=== PATIENT | male | born 1960 | race Caucasian/White ===

== ENCOUNTER 2017-04-18 09:10 | Observation (INO) | payer BC, OTHER ==
[2017-04-18] MEDS ORDERED: ASPIRIN 81 MG PO STA (09:27)
[2017-04-18] MEDS ORDERED: NITROGLYCERIN OINT 1 INCH/GM PACKET TOPICAL STA (09:27)
[2017-04-18] MEDS ORDERED: NITROGLYCERIN SL TABS 0.4 MG TAB SUBLINGUAL STA ×2 (09:27)
--- NOTE | 2017-04-18 09:31 | ED ---
General Adult HPI - General Chief complaint: Chest Pain Stated complaint: CHEST PAIN Time Seen by Provider: 04/18/17 09:15 Source: patient, family, RN notes reviewed Mode of arrival: wheelchair Limitations: no limitations - History of Present Illness Initial comments: This a 56-year-old male presents emergency Department complaining of having high blood pressure last 2 days. Patient also states this morning he started having some left-sided chest pressure that does not feel like his previous heart pain but states it's something that he normally doesn't have. Patient denies any radiation of the pain. Patient states she does have shortness of breath. Patient denies any diaphoresis. Patient denies any nausea today however he does mention that he had some dry heaves on Saturday. Patient denies any recent fever chills or cough. Patient states she's had previous bypass surgery does have high blood pressure does have high cholesterol. Patient denies any smoking currently he states he quit years ago. Patient denies any abdominal pain. Patient denies any vomiting or diarrhea. Patient denies any lightheadedness or dizziness. Patient denies headache patient denies numbness or weakness patient states he also had 2 bloody bowel movements with bright red blood this morning - Related Data Home Medications Medication Instructions Recorded Confirmed Aspirin 81 mg PO DAILY 03/22/14 04/18/17 Lisinopril [Zestril] 10 mg PO DAILY 03/22/14 04/18/17 Metoprolol Tartrate 50 mg PO DAILY 03/22/14 04/18/17 Omeprazole 20 mg PO DAILY 03/22/14 04/18/17 Simvastatin [Zocor] 80 mg PO HS 03/22/14 04/18/17 Cholecalciferol [Vitamin D3] 5,000 unit PO DAILY 03/23/14 04/18/17 Allergies Allergy/AdvReac Type Severity Reaction Status Date / Time hayfever Allergy Unknown Uncoded 04/18/17 09:16 Review of Systems ROS Statement: Those systems with pertinent positive or pertinent negative responses have been documented in the HPI. ROS Other: All systems not noted in ROS Statement are negative. Past Medical History Past Medical History: Coronary Artery Disease (CAD), Chest Pain / Angina, GERD/ Reflux, Hypertension, Myocardial Infarction ([place]) Additional Past Medical History / Comment(s): Pt has hx of high cholesterol. Pt states at 1900 last nite started having difficulty swallowing. Still unable to swallow, even saliva. Has hx of GERD, and would occasionally have brief periods of difficulty swallowing. Last Myocardial Infarction Date:: 2009 History of Any Multi-Drug Resistant Organisms: None Reported Past Surgical History: Appendectomy, Coronary Bypass/CABG, Heart Catheterization With Stent Additional Past Surgical History / Comment(s): CABG February 2010. Pt had [place] 2009. Past Anesthesia/Blood Transfusion Reactions: No Reported Reaction Date of Last Stent Placement:: 2009 Past Psychological History: No Psychological Hx Reported Smoking Status: Former smoker Past Alcohol Use History: Heavy Past Drug Use History: None Reported - Past Family History Father Family Medical History: Cancer, Coronary Artery Disease (CAD), Hyperlipidemia, Hypertension, Myocardial Infarction ([place]) Additional Family Medical History / Comment(s): of Lung cancer at the age of 69. Mother Family Medical History: Cancer, COPD, Coronary Artery Disease (CAD), Hypertension Additional Family Medical History / Comment(s): Mom at age 71. Cancer hx of colon CA. General Exam - General Exam Comments Initial Comments: GENERAL: Patient is well-developed and well-nourished. Patient is nontoxic and well- hydrated and is in mild distress. ENT: Neck is soft and supple. No significant lymphadenopathy is noted. Oropharynx is clear. Moist mucous membranes. Neck has full range of motion without eliciting any pain. EYES: The sclera were anicteric and conjunctiva were pink and moist. Extraocular movements were intact and pupils were equal round and reactive to light. Eyelids were unremarkable. PULMONARY: Unlabored respirations. Good breath sounds bilaterally. No audible rales rhonchi or wheezing was noted. CARDIOVASCULAR: There is a regular rate and rhythm without any murmurs gallops or rubs. ABDOMEN: Soft and nontender with normal bowel sounds. No palpable organomegaly was noted. There is no palpable pulsatile mass. SKIN: Skin is clear with no lesions or rashes and otherwise unremarkable. NEUROLOGIC: Patient is alert and oriented x3. Cranial nerves II through XII are grossly intact. Motor and sensory are also intact. Normal speech, volume and content. Symmetrical smile. MUSCULOSKELETAL: Normal extremities with adequate strength and full range of motion. No lower extremity swelling or edema. No calf tenderness. LYMPHATICS: No significant lymphadenopathy is noted PSYCHIATRIC: Normal psychiatric evaluation. Normal interpersonal interactions appears functionally intact in deals appropriately with others. No signs of depression. No signs of anxiety. Limitations: no limitations Course Vital Signs 04/18/17 04/18/17 04/18/17 09:13 09:38 09:43 Temperature 97.8 F Pulse Rate 72 79 Respiratory 16 18 19 Rate Blood Pressure 192/91 163/99 O2 Sat by Pulse 99 98 Oximetry 04/18/17 10:06 Temperature Pulse Rate 69 Respiratory 18 Rate Blood Pressure 181/100 O2 Sat by Pulse 97 Oximetry Medical Decision Making - Medical Decision Making EKG shows sinus rhythm at 70 bpm PA interval is 224 QRS is 98 QT interval 390 QTC is 429. Patient's EKG shows no ST segment elevation or depression or T wave abnormalities are noted. Patient got 1 nitroglycerin sublingual and it took away his pain. Patient is nontoxic and given heparin today because he has some rectal bleeding. Patient did have nitro paste placed his blood pressure remained mildly elevated psychiatric rooms of hydralazine. And the patient did get aspirin. I spoke with Dr. Cardoza and Dr. Cardoza and agreed to admit the patient admitted the patient I consult cardiology I continued the Nitropaste and aspirin on the floor. - Lab Data Result diagrams: 04/18/17 09:22 04/18/17 09:22 Lab Results 04/18/17 04/18/17 04/18/17 Range/Units 09:22 09:22 09:22 WBC 10.7 H (3.8-10.6) k/uL RBC 5.36 (4.30-5.90) m/uL Hgb 16.9 (13.0-17.5) gm/dL Hct 51.2 (39.0-53.0) % MCV 95.5 (80.0-100.0) fL MCH 31.6 (25.0-35.0) pg MCHC 33.0 (31.0-37.0) g/dL RDW 13.5 (11.5-15.5) % Plt Count 269 (150-450) k/uL Neutrophils % 82 % Lymphocytes % 9 % Monocytes % 7 % Eosinophils % 1 % Basophils % 0 % Neutrophils # 8.7 H (1.3-7.7) k/uL Lymphocytes # 1.0 (1.0-4.8) k/uL Monocytes # 0.7 (0-1.0) k/uL Eosinophils # 0.1 (0-0.7) k/uL Basophils # 0.0 (0-0.2) k/uL PT (9.0-12.0) sec INR (<1.2) APTT (22.0-30.0) sec Sodium 145 (137-145) mmol/L Potassium 3.9 (3.5-5.1) mmol/L Chloride 109 H (98-107) mmol/L Carbon Dioxide 23 (22-30) mmol/L Anion Gap 13 mmol/L BUN 16 (9-20) mg/dL Creatinine 0.97 (0.66-1.25) mg/dL Est GFR (MDRD) Af Amer >60 (>60 ml/min/1.73 sqM) Est GFR (MDRD) Non-Af >60 (>60 ml/min/1.73 sqM) Glucose 100 H (74-99) mg/dL Calcium 9.7 (8.4-10.2) mg/dL Magnesium 2.0 (1.6-2.3) mg/dL Total Bilirubin 0.8 (0.2-1.3) mg/dL AST 26 (17-59) U/L ALT 36 (21-72) U/L Alkaline Phosphatase 100 (38-126) U/L Total Creatine Kinase 91 (55-170) U/L CK-MB (CK-2) 1.9 (0.0-2.4) ng/mL CK-MB (CK-2) Rel Index 2.1 Troponin I <0.012 (0.000-0.034) ng/mL Total Protein 7.6 (6.3-8.2) g/dL Albumin 4.7 (3.5-5.0) g/dL 04/18/17 Range/Units 09:22 WBC (3.8-10.6) k/uL RBC (4.30-5.90) m/uL Hgb (13.0-17.5) gm/dL Hct (39.0-53.0) % MCV (80.0-100.0) fL MCH (25.0-35.0) pg MCHC (31.0-37.0) g/dL RDW (11.5-15.5) % Plt Count (150-450) k/uL Neutrophils % % Lymphocytes % % Monocytes % % Eosinophils % % Basophils % % Neutrophils # (1.3-7.7) k/uL Lymphocytes # (1.0-4.8) k/uL Monocytes # (0-1.0) k/uL Eosinophils # (0-0.7) k/uL Basophils # (0-0.2) k/uL PT 10.3 (9.0-12.0) sec INR 1.0 (<1.2) APTT 23.9 (22.0-30.0) sec Sodium (137-145) mmol/L Potassium (3.5-5.1) mmol/L Chloride (98-107) mmol/L Carbon Dioxide (22-30) mmol/L Anion Gap mmol/L BUN (9-20) mg/dL Creatinine (0.66-1.25) mg/dL Est GFR (MDRD) Af Amer (>60 ml/min/1.73 sqM) Est GFR (MDRD) Non-Af (>60 ml/min/1.73 sqM) Glucose (74-99) mg/dL Calcium (8.4-10.2) mg/dL Magnesium (1.6-2.3) mg/dL Total Bilirubin (0.2-1.3) mg/dL AST (17-59) U/L ALT (21-72) U/L Alkaline Phosphatase (38-126) U/L Total Creatine Kinase (55-170) U/L CK-MB (CK-2) (0.0-2.4) ng/mL CK-MB (CK-2) Rel Index Troponin I (0.000-0.034) ng/mL Total Protein (6.3-8.2) g/dL Albumin (3.5-5.0) g/dL Critical Care Time Critical Care Time: Yes Total Critical Care Time: 35 Disposition Clinical Impression: Unstable angina pectoris, Rectal bleeding Disposition: ADMITTED IP TO THIS HOSP Referrals: Ramsey Wells MD [Primary Care Provider] - 1-2 days Time of Disposition: 11:04
[2017-04-18] MEDS: NITROGLYCERIN SL TABS 0.4 MG TAB SUBLINGUAL STA ×2 (09:41→09:42)
[2017-04-18 09:47] LABS: Basophils % (A) 0 %; CH 31.7; CHCM 33.4; Eosinophils # (A) 0.1 k/uL (0-0.7); Eosinophils % (A) 1 %; HCT 51.2 % (39.0-53.0); HDW 2.35; HGB 16.9 gm/dL (13.0-17.5); Luc # (Auto) 0.15; Luc % (Auto) 1; Lymphocytes % (A) 9 %; MCH 31.6 pg (25.0-35.0); MCV 95.5 fL (80.0-100.0); Mean Platelet Volume 6.9; Monocytes # (A) 0.7 k/uL (0-1.0); Monocytes % (A) 7 %; Neutrophils # (A) 8.7 k/uL (1.3-7.7); Neutrophils % (A) 82 %; RBC 5.36 m/uL (4.30-5.90); RDW 13.5 % (11.5-15.5); WBC 10.7 k/uL (3.8-10.6); WBC (Perox) 10.15
[2017-04-18 09:49] LABS: Partial Thromboplastin Time 23.9 sec (22.0-30.0); Prothrombin Time 10.3 sec (9.0-12.0)
[2017-04-18 09:52] LABS: ALT 36 U/L (21-72); AST 26 U/L (17-59); Alkaline Phosphatase 100 U/L (38-126); Anion Gap 13 mmol/L; Blood Urea Nitrogen 16 mg/dL (9-20); Calcium 9.7 mg/dL (8.4-10.2); Carbon Dioxide 23 mmol/L (22-30); Chloride 109 mmol/L (98-107); Glucose 100 mg/dL (74-99); Non-African American GFR(MDRD) >60 (>60 ml/min/1.73 sqM); Potassium 3.9 mmol/L (3.5-5.1); Sodium 145 mmol/L (137-145); Total Bilirubin 0.8 mg/dL (0.2-1.3); Total Protein 7.6 g/dL (6.3-8.2)
[2017-04-18 09:59] LABS: Creatine Kinase 91 U/L (55-170)
[2017-04-18 10:12] LABS: Creatine Kinase MB 1.9 ng/mL (0.0-2.4); Troponin I <0.012 ng/mL (0.000-0.034)
--- NOTE | 2017-04-18 10:12 | XR ---
EXAMINATION TYPE: XR chest 2V DATE OF EXAM: 04/18/2017 COMPARISON: Prior chest x-ray 03/27/2013 HISTORY: Chest pain TECHNIQUE: Frontal and lateral views of the chest are obtained. FINDINGS: There is no focal air space opacity, pleural effusion, or pneumothorax seen. The cardiac silhouette size is within normal limits. There are overlying cardiac leads. Patient is post median st ernotomy. The osseous structures are intact. IMPRESSION: No acute cardiopulmonary process.
[2017-04-18] MEDS ORDERED: NITROGLYCERIN SL TABS 0.4 MG TAB SUBLINGUAL PRN (11:04)
[2017-04-18] MEDS ORDERED: hydrALAZINE HCL 20 MG/ML 1 ML VIAL IVP STA (11:05)
--- NOTE | 2017-04-18 13:41 | CONS ---
CONSULTATION Mr. Fox is a 56-year-old male with known history of coronary artery disease, status post coronary artery bypass grafting in 2010 following a myocardial infarction, underwent bypass at that time. Has not been followed by Cardiology since that time. He has a strong family history of coronary disease, history of hypertension, hyperlipidemia, who presented to the emergency room with symptoms of left-sided chest discomfort as well as bright red blood per rectum. He had the discomfort in the left side. He feels that it was muscular, not associated with any other symptoms and according to him, different from the presenting symptoms in 2009. He is quite active physically. He has some dyspnea on exertion that has been stable, but no exertional chest pain. He denies any dizziness or palpitation. No syncope. No PND, orthopnea, or peripheral edema. He had bright red blood per rectum and with his stool on more than one occasion today. He feels slightly nauseated. His coronary risk factors are remarkable for the history of hypertension, hyperlipidemia, strong family history of coronary artery disease and he has stopped smoking in 2008. MEDICATION: His medications at home included aspirin 81 mg daily, vitamin D, Zestril 10 mg daily, metoprolol tartrate 50 mg daily, omeprazole 20 mg daily, and simvastatin 80 mg daily. REVIEW OF SYSTEMS: RESPIRATORY SYSTEM: He has no recent wheezing. No cough. He has some dyspnea on exertion. GI SYSTEM: He had red blood per rectum. He has no prior history of ulcer. No abdominal pain. SYSTEM: No dysuria or hematuria. NERVOUS SYSTEM: No history of seizure. PHYSICAL EXAMINATION: A 56-year-old male, alert, oriented, in no apparent distress. Blood pressure running 159/80 with the heart rate in the 60s. HEAD: Normocephalic. EYES: Sclerae anicteric. NECK: Good upstroke. No bruit. No jugular distention. LUNGS: Clear to auscultation. HEART: Regular rate and rhythm. S1, S2. No S3. No rub. No chest wall tenderness. ABDOMEN: Soft, nontender. Positive bowel sounds. No organomegaly. EXTREMITIES: No edema. Intact distal pulses. LAB DATA: Lab data revealed BUN and creatinine of 16.9. Potassium 3.9. Troponin less than 0.012. Hemoglobin of 16.9. White blood cell of 10.7. EKG revealed a sinus mechanism with normal axis, first-degree AV block, poor R-wave progression; no acute changes. Chest x-ray revealed no evidence of acute infiltrate. IMPRESSION: 1. Left-sided chest discomfort of unclear etiology. Rule out angina pectoris. His symptoms are different from his prior presenting symptoms in 2009. He has not had any enzymatic changes so far. 2. Status post coronary artery bypass grafting. 3. Hypertension, elevated. According to the patient his blood pressure has been elevated for the last couple days. 4. History of hyperlipidemia. 5. Bright red blood per rectum, etiology unclear. RECOMMENDATION: From the cardiac standpoint, I will start him back on a beta kia and an TYRA inhibitor. I will add hydrochlorothiazide to his regimen. Will continue on the statin. An echocardiogram with Doppler will be obtained her. The patient is not a candidate for anticoagulation because of his bleeding. Depending on results of testing, further recommendation will be made. I will try to obtain the prior cardiac workup and depending on his progress and results of his lab data, further recommendation will be made. Thank you for this consult. We will follow with you. MMODL / IJN: [id number] /
[2017-04-18] MEDS: NITROGLYCERIN OINT 1 INCH/GM PACKET TOPICAL SCH ×3 (14:17→22:52)
[2017-04-18] MEDS ORDERED: ACETAMINOPHEN TAB 325 MG TAB PO PRN (14:51)
[2017-04-18] MEDS: HYDROCHLOROTHIAZIDE 25 MG TAB PO SCH (15:16)
[2017-04-18] MEDS: ATORVASTATIN 40 MG TAB PO SCH (15:16)
[2017-04-18] MEDS: METOPROLOL TARTRATE 25 MG TAB PO SCH (15:24)
[2017-04-18] MEDS: LISINOPRIL 5 MG TAB PO SCH (15:24)
[2017-04-18 15:59] LABS: Basophils % (A) 0 %; CH 31.7; CHCM 33.1; Eosinophils # (A) 0.1 k/uL (0-0.7); Eosinophils % (A) 1 %; HCT 44.6 % (39.0-53.0); HDW 2.27; HGB 15.1 gm/dL (13.0-17.5); Luc # (Auto) 0.19; Luc % (Auto) 2; Lymphocytes # (A) 0.9 k/uL (1.0-4.8); Lymphocytes % (A) 10 %; MCH 32.5 pg (25.0-35.0); MCHC 33.8 g/dL (31.0-37.0); MCV 96.2 fL (80.0-100.0); Mean Platelet Volume 7.2; Monocytes # (A) 0.6 k/uL (0-1.0); Monocytes % (A) 7 %; Neutrophils % (A) 79 %; RBC 4.63 m/uL (4.30-5.90); RDW 13.4 % (11.5-15.5); WBC 8.9 k/uL (3.8-10.6); WBC (Perox) 9.07
[2017-04-18 16:17] LABS: Creatine Kinase 67 U/L (55-170)
[2017-04-18 16:28] LABS: Creatine Kinase MB 1.2 ng/mL (0.0-2.4); Troponin I <0.012 ng/mL (0.000-0.034)
[2017-04-18 17:40] LABS: Basophils % (A) 0 %; CH 31.6; CHCM 32.9; Eosinophils # (A) 0.2 k/uL (0-0.7); Eosinophils % (A) 2 %; HCT 46.5 % (39.0-53.0); HDW 2.28; HGB 15.2 gm/dL (13.0-17.5); Luc # (Auto) 0.23; Luc % (Auto) 3; Lymphocytes # (A) 1.2 k/uL (1.0-4.8); Lymphocytes % (A) 13 %; MCH 31.6 pg (25.0-35.0); MCHC 32.8 g/dL (31.0-37.0); MCV 96.5 fL (80.0-100.0); Mean Platelet Volume 7.1; Monocytes # (A) 0.6 k/uL (0-1.0); Monocytes % (A) 7 %; Neutrophils % (A) 76 %; RBC 4.82 m/uL (4.30-5.90); RDW 13.4 % (11.5-15.5); WBC 9.3 k/uL (3.8-10.6); WBC (Perox) 9.65
[2017-04-18] MEDS ORDERED: DIPHENOX-ATROP 2.5-0.025 MG 1 EACH TAB PO PRN (18:03)
--- NOTE | 2017-04-18 18:59 | HP ---
HISTORY AND PHYSICAL CHIEF COMPLAINT: 1. Chest pain. 2. Hypertension. HISTORY OF PRESENT ILLNESS: This is another admission for this 56-year-old, white male, who has a history of coronary artery disease. He had an NC in 2009. He subsequently underwent CABG. Since then he has done fairly well but he has a tendency to drink a great deal of alcohol and is lax on taking his medicines and keeping followup. He has not been seen for almost a year. He apparently was identified as having a blood pressure of 218/118 and came to the emergency room. He was experiencing some chest pain and pressure as well. His enzymes are normal. He also has a history of hyperlipidemia. REVIEW OF SYSTEMS: He has had a slight headache. He has had no neurologic deficits or changes in vision, hearing. He has had no cough, chills, palpitations, syncope, orthopnea, PND, abdominal pain, vomiting, diarrhea, melena, hematochezia, jaundice, hematuria, frequency, urgency, calcitriol disease, diabetes cancer. Past medical history, family, personal and social histories are all otherwise unremarkable. He is on simvastatin 80 mg at night, metoprolol 50 mg once a day, lisinopril 10 mg once a day, Prilosec 20 mg once a day, 81 mg aspirin, and ranitidine 150 mg b.i.d. He used to smoke, but he stopped. PHYSICAL EXAMINATION: Blood pressure is 218/118 with a pulse of 88, respirations of 38 and he is afebrile. In general, appeared to be flushed, but in no acute distress. Skin is dry and lymph nodes not enlarged. Head, ears, eyes, nose, mouth and throat were normal. Neck veins not distended. Carotids are normal. Chest is clear. Cardiac exam is normal. Abdomen is soft and nontender. Extremities are normal. Neurologically he is intact. IMPRESSION: 1. Chest pain. 2. History of coronary artery disease with bypass. 3. Uncontrolled hypertension. 4. Alcohol abuse. PLAN: 1. Bed rest. 2. IV fluids. 3. Serial EKGs and enzymes. 4. Cardiology consult. 5. Control hypertension. MMODL / IJN: [id number] /
[2017-04-18] MEDS ORDERED: ATORVASTATIN 40 MG TAB PO SCH (21:00)
[2017-04-18 22:47] LABS: Basophils % (A) 0 %; CH 31.7; CHCM 33.3; Eosinophils # (A) 0.3 k/uL (0-0.7); Eosinophils % (A) 3 %; HCT 46.1 % (39.0-53.0); HDW 2.26; HGB 15.2 gm/dL (13.0-17.5); Luc # (Auto) 0.21; Luc % (Auto) 2; Lymphocytes # (A) 1.3 k/uL (1.0-4.8); Lymphocytes % (A) 15 %; MCH 31.5 pg (25.0-35.0); MCHC 32.9 g/dL (31.0-37.0); MCV 95.6 fL (80.0-100.0); Monocytes # (A) 0.7 k/uL (0-1.0); Monocytes % (A) 8 %; Neutrophils # (A) 6.7 k/uL (1.3-7.7); Neutrophils % (A) 72 %; RBC 4.83 m/uL (4.30-5.90); RDW 13.4 % (11.5-15.5); WBC 9.2 k/uL (3.8-10.6)
[2017-04-18 23:00] LABS: Creatine Kinase 60 U/L (55-170)
[2017-04-18 23:14] LABS: Creatine Kinase MB 1.1 ng/mL (0.0-2.4); Troponin I <0.012 ng/mL (0.000-0.034)
[2017-04-19] MEDS: NITROGLYCERIN OINT 1 INCH/GM PACKET TOPICAL SCH ×2 (02:33→11:38)
[2017-04-19 06:51] LABS: CH 31.7; CHCM 33.3; HCT 49.5 % (39.0-53.0); HDW 2.25; HGB 16.1 gm/dL (13.0-17.5); MCH 31.1 pg (25.0-35.0); MCHC 32.5 g/dL (31.0-37.0); MCV 95.6 fL (80.0-100.0); Mean Platelet Volume 6.8; RBC 5.18 m/uL (4.30-5.90); RDW 13.4 % (11.5-15.5)
[2017-04-19 07:00] LABS: Anion Gap 11 mmol/L; Blood Urea Nitrogen 13 mg/dL (9-20); Calcium 9.4 mg/dL (8.4-10.2); Carbon Dioxide 24 mmol/L (22-30); Chloride 104 mmol/L (98-107); Cholesterol 198 mg/dL (<200); Glucose 103 mg/dL (74-99); HDL Cholesterol 71 mg/dL (40-60); Non-African American GFR(MDRD) >60 (>60 ml/min/1.73 sqM); Potassium 3.9 mmol/L (3.5-5.1); Sodium 139 mmol/L (137-145)
[2017-04-19] MEDS: METOPROLOL TARTRATE 25 MG TAB PO SCH (08:35)
[2017-04-19] MEDS: LISINOPRIL 5 MG TAB PO SCH (08:35)
[2017-04-19] MEDS: PANTOPRAZOLE 40 MG TABLET PO SCH (08:35)
[2017-04-19] MEDS: ATORVASTATIN 40 MG TAB PO SCH (08:35)
[2017-04-19] MEDS: ASPIRIN 81 MG PO SCH (08:36)
[2017-04-19] MEDS: HYDROCHLOROTHIAZIDE 25 MG TAB PO SCH (08:36)
[2017-04-19] MEDS ORDERED: ASPIRIN 81 MG PO SCH (09:00)
[2017-04-19] MEDS ORDERED: LISINOPRIL 10 MG TAB PO SCH (09:00)
[2017-04-19] MEDS ORDERED: ASPIRIN 325 MG TAB PO SCH (09:00)
[2017-04-19] MEDS ORDERED: METOPROLOL TARTRATE 50 MG TAB PO SCH (09:00)
--- NOTE | 2017-04-19 09:29 | ECHOF ---
Referral Reason:cad MEASUREMENTS -------- HEIGHT: 165.1 cm WEIGHT: 88.0 kg BP: RVIDd: 3.8 cm (< 3.3) IVSd: 1.1 cm (0.6 - 1.1) LVIDd: 4.7 cm (3.9 - 5.3) LVPWd: 1.3 cm (0.6 - 1.1) IVSs: 1.3 cm LVIDs: 3.8 cm LVPWs: 1.2 cm LAESV Index (A-L): 20.78 ml/m Ao Diam: 3.4 cm (2.0 - 3.7) AV Cusp: 2.0 cm (1.5 - 2.6) LA Diam: 3.1 cm (2.7 - 3.8) MV EXCURSION: 19.783 mm (> 18.000) MV EF SLOPE: 81 mm/s (70 - 150) EPSS: 0.5 cm MV E Erwin: 0.96 m/s MV DecT: 200 ms MV A Erwin: 1.03 m/s MV E/A Ratio: 0.93 RAP: 5.00 mmHg RVSP: 11.86 mmHg FINDINGS -------- Sinus rhythm. This was a technically difficult study with suboptimal views. The left ventricular size is normal. There is mild concentric left ventricular hypertrophy. Overall left ventricular systolic function is mildly impaired with, an EF between 45 - 50 %. Basal inferolateral hypokinesis. The right ventricle is mild to moderately enlarged. The left atrium is normal in size. The right atrium is normal in size. 1.5mg of Definity was utilized for enhancement of images The aortic valve is trileaflet, and appears structurally normal. No aortic stenosis or regurgitation. Mild mitral regurgitation is present. Mild tricuspid regurgitation present. The right ventricular systolic pressure, as measured by Doppler, is 11.86mmHg. Pulmonic valve appears structurally normal. The aortic root size is normal. The pericardium is normal. CONCLUSIONS -------- 1. Sinus rhythm. 2. 1.5mg of Definity was utilized for enhancement of images 3. The aortic valve is trileaflet, and appears structurally normal. No aortic stenosis or regurgitation. 4. Mild mitral regurgitation is present. 5. Mild tricuspid regurgitation present. 6. The right ventricular systolic pressure, as measured by Doppler, is 11.86mmHg. 7. Pulmonic valve appears structurally normal. 8. The aortic root size is normal. 9. The pericardium is normal. 10. This was a technically difficult study with suboptimal views. 11. The left ventricular size is normal. 12. There is mild concentric left ventricular hypertrophy. 13. Overall left ventricular systolic function is mildly impaired with, an EF between 45 - 50 %. 14. Basal inferolateral hypokinesis. 15. The right ventricle is mild to moderately enlarged. 16. The left atrium is normal in size. 17. The right atrium is normal in size. RO[employer] MILL OPERATOR: Malou Simon RDCS
--- NOTE | 2017-04-19 11:53 | P.CONS ---
History of Present Illness - Reason for Consult Consult date: 04/19/17 GI bleed Requesting physician: Ramsey Wells - History of Present Illness 56-year-old male with a history of CAD, CABG, TN, hypertension presents with left-sided chest discomfort and rectal bleeding. Admission hemoglobin 16.9 presently 16.1. Platelet 241. BUN 13. Creatinine 0.9. INR 1.0. Patient states a few days ago he developed an episode of nonbloody diarrhea and past bright red blood per rectum without stool cleared up after few wipes of tissue. History of hemorrhoids. He intermittently has this type of bleeding couple times a year nothing severe. Denies gross hematochezia hematemesis or melena. Lower abdominal cramping prior to admission. Last colonoscopy to his memory was about 5 years ago unsure of results. No fever chills weight loss. No history of personal a familial colon cancer. He does drink beer on a daily basis for several years. Takes one tablet of Aleve daily for arthritic pain along with baby aspirin but no additional NSAIDs aspirin products or antiplatelet agents. Review of Systems Constitutional: Denies fever, chills, sweats, weight gain, or loss. HEENT: Negative for migraines, blurred vision or loss, earaches, drainage, tinnitus, oral mucosal lesions, dysphagia, or odynophagia. Cardiac: CAD. TN. CABG. Negative for chest pain, arrhythmias, or palpitation. Respiratory: Negative for shortness of breath, hemoptysis, cough, or sputum production. Gastrointestinal: See HPI for pertinent findings. Genitourinary: Negative for hematuria, urgency, frequency, polyuria, dysuria, or penile discharge. Musculoskeletal: Negative for muscle aches, swelling, arthritis, and arthralgias. Neurologic: Negative for stroke or TIA. Endocrine: Negative for thyroid problems. Skin: Negative for rash or itching. Psychiatric: Negative history for depression and anxiety All systems: negative (See HPI) Past Medical History Past Medical History: Coronary Artery Disease (CAD), Chest Pain / Angina, COPD, GERD/Reflux, Hyperlipidemia, Hypertension, Myocardial Infarction (TN) Additional Past Medical History / Comment(s): Gerd with past intermittent problems with swallowing, past R wrist and L ankle fractures. Last Myocardial Infarction Date:: 2009 History of Any Multi-Drug Resistant Organisms: None Reported Past Surgical History: Appendectomy, Coronary Bypass/CABG, Heart Catheterization With Stent Additional Past Surgical History / Comment(s): 5 vessel CABG February 2010, EGD/ colonoscopy Past Anesthesia/Blood Transfusion Reactions: No Reported Reaction Date of Last Stent Placement:: 2009 Past Psychological History: No Psychological Hx Reported Additional Psychological History / Comment(s): Pt lives alone. He is independent. Smoking Status: Former smoker Past Alcohol Use History: Heavy Additional Past Alcohol Use History / Comment(s): Pt states he started smoking at age 11. He has also chewed tobacco at times and sometimes did both. He quit cigarettes and chew in 2008. Pt states he drinks either 6-8 beers a day or 4-5 drinks with vodka a day. Past Drug Use History: None Reported - Past Family History Father Family Medical History: Cancer, Coronary Artery Disease (CAD), Hyperlipidemia, Hypertension, Myocardial Infarction (TN) Additional Family Medical History / Comment(s): of Lung cancer at the age of 69. Mother Family Medical History: Cancer, COPD, Coronary Artery Disease (CAD), Hypertension Additional Family Medical History / Comment(s): Mom at age 71. Cancer hx of colon CA. Medications and Allergies Home Medications Medication Instructions Recorded Confirmed Type Aspirin 81 mg PO DAILY 03/22/14 04/18/17 History Lisinopril [Zestril] 10 mg PO DAILY 03/22/14 04/18/17 History Metoprolol Tartrate 50 mg PO DAILY 03/22/14 04/18/17 History Omeprazole 20 mg PO DAILY 03/22/14 04/18/17 History Simvastatin [Zocor] 80 mg PO HS 03/22/14 04/18/17 History Cholecalciferol [Vitamin D3] 5,000 unit PO DAILY 03/23/14 04/18/17 History Peg 3350-Na Sulf,Bicarb,Cl/KCl 4,000 ml PO DIRECTED #1 bottle 04/19/17 Rx [Golytely Lavage] Allergies Allergy/AdvReac Type Severity Reaction Status Date / Time hayfever Allergy Unknown Uncoded 04/18/17 09:16 Physical Exam Vitals: Vital Signs Temp Pulse Pulse Resp BP BP Pulse Ox 04/19/17 04:00 98.5 F 85 16 143/96 96 04/19/17 00:00 98.1 F 77 16 163/111 96 04/18/17 20:00 97.4 F L 74 16 147/91 97 04/18/17 15:00 97.5 F L 76 16 131/84 96 04/18/17 13:16 16 04/18/17 12:34 97 F L 69 16 159/86 97 04/18/17 12:06 98.0 F 81 18 162/86 97 04/18/17 12:05 116 H 18 162/86 94 L 04/18/17 11:31 98.1 F 67 19 180/84 98 04/18/17 11:00 65 20 176/92 99 04/18/17 10:06 69 18 181/100 97 04/18/17 09:43 19 04/18/17 09:38 79 18 163/99 98 04/18/17 09:13 97.8 F 72 16 192/91 99 Intake and Output 04/18/17 04/19/17 04/19/17 22:59 06:59 14:59 Intake Total 240 Balance 240 Intake: Oral 240 Other: Voiding Method Toilet Toilet # Voids 2 1 # Bowel Movements 1 Weight 85 kg General appearance: The patient is alert, oriented, in no acute distress. HET: Head is normocephalic and atraumatic. Pupils are equal and reactive. Oropharynx is clear without lesions. Neck: Supple without lymphadenopathy. Trachea midline. Heart: S1 S2. Regular rate and rhythm. Lungs: No crackles or wheezes are heard. Abdomen: Soft, nontender, nondistended with bowel sounds. No peritoneal signs. No palpable organomegaly or masses. Extremities: Normal skin color and turgor. No cyanosis, rash, ulceration, clubbing, or edema. Radial and pedal pulses are 2/4 bilaterally. Neurological: No focal deficits. Strength and sensation are grossly intact. Rectal: No external hemorrhoids. Internal exam no palpable masses possible small internal hemorrhoid felt near the 6 o'clock position. Additionally there is a small superficial tear in the 6 o'clock position, no obvious fissure felt. No blood on finger. Results CBC & Chem 7: 04/19/17 05:59 04/20/17 05:51 Labs: Abnormal Lab Results - Last 24 Hours (Table) 04/18/17 04/18/17 04/18/17 Range/Units 09:22 09:22 15:15 WBC 10.7 H (3.8-10.6) k/uL Neutrophils # 8.7 H (1.3-7.7) k/uL Lymphocytes # 0.9 L (1.0-4.8) k/uL Chloride 109 H (98-107) mmol/L Glucose 100 H (74-99) mg/dL LDL Cholesterol, Calc (0-99) mg/dL HDL Cholesterol (40-60) mg/dL 04/19/17 Range/Units 05:59 WBC (3.8-10.6) k/uL Neutrophils # (1.3-7.7) k/uL Lymphocytes # (1.0-4.8) k/uL Chloride (98-107) mmol/L Glucose 103 H (74-99) mg/dL LDL Cholesterol, Calc 103 H (0-99) mg/dL HDL Cholesterol 71 H (40-60) mg/dL Assessment and Plan (1) Rectal bleeding Narrative/Plan: Suspect perirectal in nature with a history of hemorrhoids possible early rectal fissure prior exam. Colonic source cannot be entirely excluded. Status: Acute (2) Chest pain Status: Acute (3) Hypertension Status: Acute Plan: 1. Dr. Wells was at bedside this morning during exam and plan of care was discussed. Dr. Wells requested outpatient colonoscopy. We'll proceed with outpatient colonoscopy in 1-2 weeks to allow hypertension to be more controlled. Hemoglobin is stable in the 16 range. Continue with stool softeners daily and avoid constipation. Local hemorrhoidal care was discussed. Patient is agreeable with this plan of care. Tentative colonoscopy scheduled April 29 at [facility] with Dr. Ndiaye. Thank you for this kind referral and the opportunity to participate in the care of your patient. This consultation was discussed with Dr. Ndiaye. The impression and plan of care have been directed as dictated.
--- NOTE | 2017-04-19 12:54 | P.PN ---
Subjective Progress Note Date: 04/19/17 Principal diagnosis: chest pain, rectal bleeding This is a pleasant 56-year-old gentleman with history of coronary artery disease , status post coronary artery bypass grafting in 2009 following a myocardial infarction. He has not followed with a artist model since that time. He also has a history of hypertension, hyperlipidemia and strong family history of coronary artery disease. Presented to emergency department with left-sided chest discomfort as well as bright red blood per rectum. Discomfort was on the left side. He felt it was muscular, not associated with any other symptoms and according to him different from the presenting symptoms in 2009. He is quite active physically. He has some dyspnea on exertion that has been stable but no exertional chest discomfort. He has no complaint of dizziness, lightheadedness , palpitations, syncope, PND, orthopnea or peripheral edema. He had episodes of bright red blood per rectum in with the stool on more than one occasion. He feels slightly nauseous and has some lower abdominal cramping. He is being followed by GI who did an internal exam and found possible hemorrhoid. He will be scheduled for colonoscopy in the next one to 2 weeks. He has received lisinopril 5 mg today, metoprolol tartrate 25 mg and hydrochlorothiazide 25 mg by mouth. Primary physician has increased lisinopril 10 mg daily and metoprolol tartrate 50 mg by mouth twice a day. Objective - Vital Signs Vital signs: Vital Signs Temp 97.0 F L 04/19/17 11:30 Pulse 79 04/19/17 11:31 Resp 16 04/19/17 11:31 BP 134/84 04/19/17 11:30 Pulse Ox 95 04/19/17 11:30 Intake & Output 04/18/17 04/19/17 04/19/17 18:59 06:59 18:59 Intake Total 480 240 Output Total 300 Balance 480 -60 Weight 87.997 kg 85 kg Intake: Oral 480 240 Output: Urine 300 Other: Voiding Method Toilet Toilet Toilet # Voids 1 1 # Bowel Movements 1 - Exam PHYSICAL EXAMINATION: HEENT: Head is atraumatic, normocephalic. Pupils equal, round. Neck is supple. There is no elevated jugular venous pressure. HEART EXAMINATION: Heart sounds regular, S1 and S2 normal. No murmur or gallop heard. CHEST EXAMINATION: Lungs are clear to auscultation and precussion. No chest wall tenderness is noted on palpation or with deep breathing. ABDOMEN: Soft, nontender. Bowel sounds are heard. No organomegaly noted. EXTREMITIES: 2+ peripheral pulses with no evidence of peripheral edema and no calf tenderness noted. NEUROLOGIC patient is awake, alert and oriented x3. . - Labs CBC & Chem 7: 04/19/17 05:59 04/19/17 05:59 Labs: Abnormal Lab Results - Last 24 Hours (Table) 04/18/17 04/19/17 Range/Units 15:15 05:59 Lymphocytes # 0.9 L (1.0-4.8) k/uL Glucose 103 H (74-99) mg/dL LDL Cholesterol, Calc 103 H (0-99) mg/dL HDL Cholesterol 71 H (40-60) mg/dL Assessment and Plan Plan: Assessment and plan #1 left-sided chest discomfort of unclear etiology, troponins less than 0.0123 #2 status post coronary artery bypass grafting in 2009 #3 hypertension #4 hyperlipidemia #5 red blood per rectum, possible hemorrhoids From cardiology's perspective, we will continue current medications. Blood pressure is better controlled. He is currently not a candidate for anticoagulation because of his bleeding. We'll continue to follow the patient and provide further recommendations accordingly. DIETARY TECH note has been reviewed, I agree with a documented findings and plan of care. Patient was seen and examined.
--- NOTE | 2017-04-19 18:12 | PN ---
PROGRESS NOTE DATE OF SERVICE: 04/19/2017 CHIEF COMPLAINT: Malignant hypertension and rectal bleeding. HISTORY OF PRESENT ILLNESS: This gentleman is doing fairly well. He has not seen any further bleeding. He has had no chest pain. His enzymes appear normal. Blood pressure is coming down, but is still slightly elevated. PHYSICAL EXAMINATION: Color is good. Chest is clear. Cardiac exam is normal. Abdomen is soft and non- tender. Extremities are normal. IMPRESSION: 1. Malignant hypertension. 2. Bright red rectal bleeding. 3. Alcoholism. PLAN: 1. Increase beta kia and TYRA inhibitor. 2. He is being evaluated by GI. He probably should have a workup postponed until his blood pressure is under good control. MMODL / IJN: [id number] /
[2017-04-19] MEDS ORDERED: LORazepam 2 MG/ML INJ IV PRN ×3 (18:26)
[2017-04-19] MEDS ORDERED: THIAMINE 100 MG/ML 2 ML VIAL IM STA (18:26)
[2017-04-19] MEDS: SENNOSIDES-DOCUSATE SODIUM 1 EACH TAB PO SCH (20:14)
[2017-04-19] MEDS: METOPROLOL TARTRATE 50 MG TAB PO SCH (20:14)
[2017-04-19] MEDS ORDERED: METOPROLOL SUCCINATE (ER) 50 MG TAB.ER.24H PO SCH (21:00)
[2017-04-20 06:51] LABS: Anion Gap 10 mmol/L; Blood Urea Nitrogen 15 mg/dL (9-20); Calcium 9.8 mg/dL (8.4-10.2); Carbon Dioxide 28 mmol/L (22-30); Chloride 100 mmol/L (98-107); Glucose 96 mg/dL (74-99); Non-African American GFR(MDRD) >60 (>60 ml/min/1.73 sqM); Potassium 4.2 mmol/L (3.5-5.1); Sodium 138 mmol/L (137-145)
[2017-04-20 07:48] VITALS: TEMP 98
[2017-04-20] MEDS: PANTOPRAZOLE 40 MG TABLET PO SCH (07:49)
[2017-04-20] MEDS: ASPIRIN 81 MG PO SCH (07:49)
[2017-04-20] MEDS: HYDROCHLOROTHIAZIDE 25 MG TAB PO SCH (07:49)
[2017-04-20] MEDS: SENNOSIDES-DOCUSATE SODIUM 1 EACH TAB PO SCH (07:49)
[2017-04-20] MEDS: ATORVASTATIN 40 MG TAB PO SCH (07:49)
[2017-04-20] MEDS: METOPROLOL TARTRATE 50 MG TAB PO SCH (07:49)
[2017-04-20] MEDS ORDERED: LISINOPRIL 20 MG TAB PO SCH (09:00)
[2017-04-20] MEDS ORDERED: LISINOPRIL 10 MG TAB PO SCH (09:00)
--- NOTE | 2017-04-20 09:55 | PN ---
PROGRESS NOTE Mr. Fox is a 56-year-old male with a history of coronary artery disease status post coronary artery bypass grafting, who presented with GI bleeding, most likely related to internal hemorrhoids. He still has some bleeding, although not as severe. He has no chest pain. His breathing has been stable. He denies any dizziness or palpitation. He denies any nausea. He continues to be on aspirin 81 mg daily, Lipitor 40 mg daily, hydrochlorothiazide 25 mg daily, metoprolol tartrate 50 mg twice a day. PHYSICAL EXAMINATION: Blood pressure 134/80 with a heart in the 80s. LUNGS: Clear. Heart regular rate and rhythm S1, S2. No S3. No rub. ABDOMEN: Soft, nontender. EXTREMITIES: No edema. LAB DATA: BUN and creatinine 15 and 1.1. Potassium 4.2. IMPRESSION: 1. Symptoms of chest discomfort with no evidence of acute coronary syndrome in a patient with known history of coronary artery disease status post coronary artery bypass grafting following a myocardial infarction. 2. Lower gastrointestinal bleeding. Scheduled to undergo outpatient workup. 3. Hypertension. 4. Hyperlipidemia. RECOMMENDATION: The patient echocardiogram revealed ejection fraction 45-50%, which is consistent with his event on presentation prior to his bypass surgery. From the cardiac standpoint, he is stable to be discharged home today and followed as an outpatient. MMODL / IJN: [id number] /
[2017-04-20 11:16] VITALS: BP 127/80; PULSE 73; RESP 18
[2017-04-20] MEDS ORDERED: THIAMINE 100 MG TAB PO SCH (12:00)
--- NOTE | 2017-04-20 12:34 | DS ---
DISCHARGE SUMMARY CHIEF COMPLAINT: Malignant hypertension. HISTORY OF PRESENT ILLNESS AND PHYSICAL EXAM: Details of this man's history and physical can be found in the initial workup. LABORATORY STUDIES: While he was in the hospital, he had laboratory studies, details of which can be found in the laboratory section of his chart. COURSE IN HOSPITAL: After admission, he was placed on bedrest and started on intravenous fluids. Blood pressure was brought down. The cardiac enzymes are normal. He had a small amount of bleeding after bowel movement in the hospital, but there was no significant hemorrhage. He was doing well. Blood pressure is under good control. It was felt he could go home on the seventh and be seen in the office in 2-3 days. He will not return to work until his blood pressure is reviewed. He is admonished to stop drinking alcohol altogether. He will see Gastroenterology or surgery after his discharge for possible lower GI endoscopy. FINAL DIAGNOSIS: 1. Malignant hypertension. 2. History of coronary artery disease. 3. Coronary artery bypass grafting. 4. Chronic alcoholism. 5. Bright red blood bleeding, source unknown. OPERATIONS: None. CONSULTATIONS: Cardiology and surgery. He is improved. MMODL / IJN: [id number] /
== END 2017-04-20 12:00 | disposition home or self-care (01) ==
LOC: EC 09:10 → 3OBS 11:04 → 6SEL 11:34
PROVIDERS: ADMIT Family Medicine; ATTEND Family Medicine
DX: I10 Essential (primary) hypertension (principal); I25.10 Atherosclerotic heart disease of native coronary artery without angina pectoris; Z95.1 Presence of aortocoronary bypass graft; F10.20 Alcohol dependence, uncomplicated; K62.5 Hemorrhage of anus and rectum; R11.0 Nausea; R19.7 Diarrhea, unspecified; K21.9 Gastro-esophageal reflux disease without esophagitis; Z79.82 Long term (current) use of aspirin; Z79.899 Other long term (current) drug therapy; J30.1 Allergic rhinitis due to pollen; Z87.891 Personal history of nicotine dependence; Z95.5 Presence of coronary angioplasty implant and graft; I25.2 Old myocardial infarction; E78.5 Hyperlipidemia, unspecified; Z82.49 Family history of ischemic heart disease and other diseases of the circulatory system; Z80.0 Family history of malignant neoplasm of digestive organs; Z82.5 Family history of asthma and other chronic lower respiratory diseases; Z80.1 Family history of malignant neoplasm of trachea, bronchus and lung
CPT/HCPCS: 99291; 96374; 36415; 93005; 93306; 80061; 80053; 80048 ×2; 82550; 82553; 83735; 84484; 85025; 85027; 85610; 85730; 71020; G0378 ×3; J0360; Q9957

== ENCOUNTER 2017-04-29 11:40 | Day surgery (SDC) | payer OTHER ==
[2017-04-26 09:12] VITALS: BMI 31.6
[~2017-04-29 11:40] MED LIST: LACTATED RINGERS 1,000 ML IV SCH; LIDOCAINE 1% 20 ML VIAL (10MG/ML) FOR IV START INTRADERMA PRN
[2017-04-29 13:05] VITALS: RESP 16; TEMP 98.3
[2017-04-29] MEDS ORDERED: LIDOCAINE 1% INJ 10MG/ML (20 ML MDV) ONE (13:45)
[2017-04-29] MEDS ORDERED: PROPOFOL 10 MG/ML 20 ML VIAL IV ONE (13:45)
--- NOTE | 2017-04-29 14:24 | P.PCN ---
Date of Procedure: 04/29/17 Procedure(s) Performed: Procedure: Colonoscopy and biopsy. Preoperative diagnosis: Rectal bleeding. Postoperative diagnosis: 1. Resolving colitis involving sigmoid and rectum, probably representing self-limited or infectious colitis. 2. Sigmoid diverticulosis. 3. No polyps or tumors seen. Biopsies obtained from the sigmoid. Preparation: HalfLytely prep. Sedation: Was provided by anesthesia. Brief clinical history: The patient is a 56-year-old male who is referred for this evaluation because of continuous rectal bleeding that he had for a whole week ending around 5 days ago. His last colonoscopy was around 5 years ago this evaluation is to assess for inflammatory bowel disease, neoplasia or other pathology. Procedure: With the patient on his left lateral decubitus position and after informed consent and adequate sedation, the perianal area was inspected and it did not show any fissures or fistulas. There were no masses felt on digital rectal examination. The Olympus CFQ 160L video colonoscope was then inserted in the rectum in the usual fashion and advanced to the cecum. There was erythema and scattered submucosal hemorrhage in the sigmoid and rectum but no ulcerations or spontaneous bleeding. These changes appeared consistent with resolving self-limited or infectious colitis. Elsewhere, the mucosa appeared healthy. No polyps or tumors were seen. There was several diverticular orifices seen scattered in the sigmoid with no evidence of acute diverticulitis or strictures. I retroflexed the endoscope in the rectum before the endoscope was withdrawn. I obtained biopsies in the sigmoid before the endoscope was withdrawn. The patient tolerated the procedure well. Plan: The patient was reassured. Will await pathology results and make further recommendations based on his course and biopsy results.
[2017-04-29 14:35] VITALS: BP 124/92; PULSE 65
== END 2017-04-29 14:56 | disposition home or self-care (01) ==
LOC: ORWHC2ENDO 11:40
DX: K57.30 Diverticulosis of large intestine without perforation or abscess without bleeding (principal); K52.9 Noninfective gastroenteritis and colitis, unspecified; K21.9 Gastro-esophageal reflux disease without esophagitis; I25.10 Atherosclerotic heart disease of native coronary artery without angina pectoris; I10 Essential (primary) hypertension; E78.5 Hyperlipidemia, unspecified; Z79.82 Long term (current) use of aspirin; Z79.899 Other long term (current) drug therapy; Z95.1 Presence of aortocoronary bypass graft; Z91.09 Other allergy status, other than to drugs and biological substances
CPT/HCPCS: 88305; 45380; J2001; J2704

== ENCOUNTER → 2017-12-26 | Outpatient (CLI) | payer BC ==
--- NOTE | 2017-12-26 11:59 | FL ---
EXAMINATION TYPE: FL UGI air w esophagus DATE OF EXAM: 12/26/2017 COMPARISON: NONE HISTORY: Positive Hemoccult per order. Negative colonoscopy within last year per patient. Occasional episodes of dysphagia with solids and liquids involving lower thorax that comes and goes per patient. History of GERD. TECHNIQUE: A double contrast UGI study is performed. A total of 64 seconds of fluoroscopic time was utilized during procedure. A total of 36 images are obtained. FINDINGS: House Mother image of the abdomen shows no gross abnormality. Sternal wires and mediastinal clips from CABG procedure are partially imaged. The esophagus shows normal motility and emptying into the stomach. No evidence of hiatal hernia or s tricture noted. No suspicious intraluminal mass is present. The stomach shows normal distensibility and peristalsis. There is mild to moderate prominence of muco radha folds in the fundus. No evidence of any mass or ulcer disease fairly significant gastroesophageal reflux into the mid to distal esophagus was observed during real-time performance of study. The duodenal bulb, sweep, and proximal small bowel loops show a 7 mm small diverticulum along mesente janell surface second portion of duodenum on overhead delayed images. IMPRESSION: Mild to moderate fundal gastritis with gastroesophageal reflux.
== END | disposition home or self-care (01) ==
LOC: RADFLMAIN 10:51
PROVIDERS: ATTEND Family Medicine
DX: K29.70 Gastritis, unspecified, without bleeding (principal); K21.9 Gastro-esophageal reflux disease without esophagitis
CPT/HCPCS: 74246

== ENCOUNTER 2018-01-28 09:37 | Day surgery (SDC) | payer BC ==
[2018-01-23 15:44] VITALS: BMI 27.3
[~2018-01-28 09:37] MED LIST changes: -LACTATED RINGERS 1,000 ML IV SCH; +MIDAZOLAM 2 MG/2 ML VIAL IV PRN
[2018-01-28 10:14] VITALS: TEMP 96.3
[2018-01-28] MEDS: LACTATED RINGERS 1,000 ML IV SCH ×2 (10:23→11:07)
[2018-01-28] MEDS ORDERED: LIDOCAINE 1% 20 ML VIAL (10MG/ML) FOR IV START INTRADERMA ONE (10:24)
[2018-01-28] MEDS ORDERED: fentaNYL (PF) 50 MCG/ML 2 ML AMP ONE (11:06)
[2018-01-28] MEDS ORDERED: PROPOFOL 10 MG/ML 20 ML VIAL IV ONE (11:06)
[2018-01-28] MEDS ORDERED: MIDAZOLAM 2 MG/2 ML VIAL ONE (11:06)
[2018-01-28] MEDS ORDERED: LIDOCAINE 1% INJ 10MG/ML (20 ML MDV) ONE (11:06)
[2018-01-28 11:38] VITALS: RESP 18
--- NOTE | 2018-01-28 11:43 | P.PCN ---
Date of Procedure: 01/28/18 Procedure(s) Performed: Procedure: Esophagogastroduodenoscopy and biopsy. Preoperative diagnosis: Positive occult blood in the stools and intermittent dysphagia. Postoperative diagnosis: 1. Small sliding hiatal hernia with LA grade C esophagitis. 2. Mild gastritis and duodenitis. 3. Biopsies obtained from the duodenum, antrum and esophagus. Preparation and sedation: Was provided by anesthesia. Brief clinical history: The patient is a 57-year-old male who is scheduled for this evaluation because of occult positive blood in his stools. The patient has chronic reflux symptoms and intermittent dysphagia and he had a barium study in December of this year that showed mild to moderate fundal gastritis with gastroesophageal reflux. He had a colonoscopy in April 2017 with me that revealed diverticulosis. The patient reported seeing blood on the toilet tissue if he wipes hard but no other overt bleeding. I did perform a rectal examination today and it showed low-grade internal hemorrhoids but no definite fissures or bleeding. No masses on digital rectal examination and soft formed stools where normally in color. Procedure: With the patient on his left lateral decubitus position and after informed consent and adequate sedation, I passed the Olympus-GIF 160 video upper endoscope through the cricopharyngeus down the esophagus. GE junction was around 40 cm from the incisors and there was a small sliding hiatal hernia. The esophagus showed LA grade C distal esophagitis with multiple small ulcerations and linear erosions terminating at the GE junction. There were no strictures or Moyer's esophagus. The endoscope was then passed into the stomach which was insufflated with air and inspected in detail including the retroflex view in the cardia. There was mottling, erythema and minimal friability especially noted in the antrum and prepyloric area but no ulcers or erosions. Pyloric channel did not show any ulcers. Duodenal bulb and the postbulbar area showed erythema and friability and few small erosions but no ulcers or bleeding. Descending duodenum within normal limits. I obtained multiple biopsies from the duodenum, antrum and esophagus then the endoscope was withdrawn. The patient tolerated the procedure well. Plan: The patient was reassured. Will await biopsy results. We discussed dietary measures and antireflux measures. I asked him to take his omeprazole twice a day for the next few weeks. I will see him in follow-up and make additional plans based on his course and biopsy results. I will keep you updated on his progress.
[2018-01-28 11:51] VITALS: BP 117/81; PULSE 68
== END 2018-01-28 12:06 | disposition home or self-care (01) ==
LOC: ORWHC2ENDO 09:37
DX: K29.50 Unspecified chronic gastritis without bleeding (principal); K21.0 Gastro-esophageal reflux disease with esophagitis; K22.10 Ulcer of esophagus without bleeding; K44.9 Diaphragmatic hernia without obstruction or gangrene; K64.8 Other hemorrhoids; K29.80 Duodenitis without bleeding; R19.5 Other fecal abnormalities; I25.10 Atherosclerotic heart disease of native coronary artery without angina pectoris; I10 Essential (primary) hypertension; E78.5 Hyperlipidemia, unspecified; J30.1 Allergic rhinitis due to pollen; I25.2 Old myocardial infarction; Z95.1 Presence of aortocoronary bypass graft; Z79.82 Long term (current) use of aspirin; Z79.899 Other long term (current) drug therapy; Z87.891 Personal history of nicotine dependence
CPT/HCPCS: 88305; 46600; 43239; J2250; J2001; J3010; J2704

== ENCOUNTER → 2020-04-27 | Outpatient (CLI) | payer BC | END | disposition home or self-care (01) | LOC: LABWHC1 14:12 | PROVIDERS: ATTEND Student in an Organized Health Care Education/Training Program | DX: U07.1 COVID-19 (principal) | CPT/HCPCS: U0003; C9803 ==

== ENCOUNTER 2020-05-03 11:09 | Day surgery (SDC) | payer BC ==
[2020-04-28 14:26] VITALS: BMI 30.2
[2020-05-03] MEDS ORDERED: LACTATED RINGERS 1,000 ML IV ONE ×2 (12:05→15:59)
[2020-05-03] MEDS ORDERED: HEPARIN SODIUM,PORCINE 5,000 UNIT/ML 1 ML VIAL ONE (12:31)
[2020-05-03] MEDS ORDERED: ONDANSETRON 4 MG/2 ML VIAL ONE (12:31)
[2020-05-03 12:32] LABS: Basophils % (A) 1 %; Eosinophils # (A) 0.2 k/uL (0-0.7); Eosinophils % (A) 3 %; HCT 51.5 % (39.0-53.0); HGB 16.7 gm/dL (13.0-17.5); Lymphocytes # (A) 1.9 k/uL (1.0-4.8); Lymphocytes % (A) 27 %; MCH 31.2 pg (25.0-35.0); MCHC 32.4 g/dL (31.0-37.0); MCV 96.3 fL (80.0-100.0); Mean Platelet Volume 7.1; Monocytes # (A) 0.5 k/uL (0-1.0); Monocytes % (A) 7 %; Neutrophils # (A) 4.2 k/uL (1.3-7.7); Neutrophils % (A) 60 %; Platelet Count 312 k/uL (150-450); RBC 5.35 m/uL (4.30-5.90); RDW 13.4 % (11.5-15.5); WBC 7.1 k/uL (3.8-10.6)
[2020-05-03] MEDS ORDERED: DEXAMETHASONE SOD PHOSPHATE 10 MG/ML 1 ML VIAL IV ONE (12:40)
[2020-05-03] MEDS ORDERED: ONDANSETRON 4 MG/2 ML VIAL IVP ONE (12:40)
[2020-05-03 12:47] LABS: Potassium 4.7 mmol/L (3.5-5.1)
[2020-05-03] MEDS ORDERED: MIDAZOLAM 2 MG/2 ML VIAL IVP ONE (12:48)
[2020-05-03] MEDS ORDERED: NEOSTIGMINE 1 MG/ML 10 ML VIAL ONE (15:25)
[2020-05-03] MEDS ORDERED: ROPIVACAINE 5MG/ML 20ML VIAL ONE (15:25)
[2020-05-03] MEDS ORDERED: HYDROmorphone (PF) 1 MG/ML ONE (15:25)
[2020-05-03] MEDS ORDERED: fentaNYL (PF) 50 MCG/ML 2 ML AMP ONE (15:25)
[2020-05-03] MEDS ORDERED: MIDAZOLAM 2 MG/2 ML VIAL ONE (15:25)
[2020-05-03] MEDS ORDERED: ROCURONIUM 10 MG/ML (10 ML VIAL) IV ONE (15:25)
[2020-05-03] MEDS ORDERED: LIDOCAINE 1% INJ 10MG/ML (20 ML MDV) ONE (15:25)
[2020-05-03] MEDS ORDERED: GLYCOPYRROLATE 0.2 MG/ML 2 ML VIAL ONE (15:25)
[2020-05-03] MEDS ORDERED: PROPOFOL 10 MG/ML 20 ML VIAL IV ONE (15:25)
[2020-05-03] MEDS ORDERED: SUCCINYLCHOLINE CHLORIDE 100 MG/5 ML SYR IV ONE (15:25)
[2020-05-03] MEDS ORDERED: BUPIVACAINE (PF) 0.25% 30 ML VIAL SQ ONE ×2 (15:52→16:48)
--- NOTE | 2020-05-03 17:02 | P.OP ---
Date of Procedure: 05/03/20 Preoperative Diagnosis: Incarcerated ventral hernia Postoperative Diagnosis: Same Procedure(s) Performed: Robotic repair of incarcerated ventral hernia Anesthesia: BALDEV Surgeon: Shahbaz Burns Estimated Blood Loss (ml): 10 Condition: stable Disposition: PACU Description of Procedure: Patient is brought operative suite remained in the supine position underwent general endotracheal anesthesia per Department of anesthesia timeout was performed correct patient correct procedure correct site was verified. Patient is prepped and draped in usual sterile fashion and hernia once patient was induced was able to be reduced. A 5 mm Visiport was used to enter the abdomen and the left upper quadrant at palmers point the abdomen was insufflated no injuries were noted and a millimeter port was placed in the left lower quadrant and 8 mm port was placed in the left mid abdomen and a 5 mm port was upsized to a 12 mm port. The defect was noted to be partially reduced there is also an incarcerated piece of fat that was still within it. The 4.5 -inch 3-D echo mesh was placed along with an 0 stratafix suture. The robot was docked and the hernia contents were reduced and excised. The defect was then closed with the 0 stratafix suture. Using a Rosalio-Mercedes the 3-D echo mesh was placed at the center of the defect and the balloon was insufflated. 2-0 Stratafix sutures which had previously been placed in the mesh were used to circumferentially suture the mesh to the anterior abdominal wall. The balloon was taken down and the mesh was noted to be in a good place the balloon and the hernia contents were removed all 3 stitches were removed the 12 mm port site was closed with the aid of a Rosalio-Mercedes suture passer with an 0 Vicryl suture. Abdomen was desufflated hemostasis was noted and all ports removed under direct visualization the skin was closed with 4-0 Monocryl subcuticular sutures. Skin glue was applied patient tolerated the procedure well there is no apparent complications Plan - Discharge Summary Discharge Rx Participant: Yes New Discharge Prescriptions: New Docusate [Colace] 100 mg PO DAILY #20 capsule HYDROcodone/APAP 5-325MG [[place] 5-325] 1 tab PO Q4HR PRN 3 Days #18 tab PRN Reason: Pain No Action Omeprazole 20 mg PO DAILY Aspirin 81 mg PO DAILY hydroCHLOROthiazide [Hydrodiuril] 25 mg PO DAILY #30 tab Metoprolol Tartrate [Lopressor] 50 mg PO BID #60 tab Pravastatin Sodium [Pravachol] 80 mg PO DAILY Benazepril HCl [Lotensin] 40 mg PO QAM Discharge Medication List Aspirin 81 mg PO DAILY 03/22/14 [History] Omeprazole 20 mg PO DAILY 03/22/14 [History] Metoprolol Tartrate [Lopressor] 50 mg PO BID #60 tab 04/20/17 [Rx] hydroCHLOROthiazide [Hydrodiuril] 25 mg PO DAILY #30 tab 04/20/17 [Rx] Pravastatin Sodium [Pravachol] 80 mg PO DAILY 01/23/18 [History] Benazepril HCl [Lotensin] 40 mg PO QAM 04/28/20 [History] Docusate [Colace] 100 mg PO DAILY #20 capsule 05/03/20 [Rx] HYDROcodone/APAP 5-325MG [[place] 5-325] 1 tab PO Q4HR PRN 3 Days #18 tab 05/03/20 [Rx] Follow up Appointment(s)/Referral(s): Shahbaz Burns DO [Doctor of Osteopathic Medicine] - 2 Weeks Activity/Diet/Wound Care/Special Instructions: PT CAN RESUME ASPIRIN TOMORROW PER DR SHEREE No lifting over 15 lbs for 5 weeks Can shower tomorrow, no baths or swimming for 3 weeks. Discharge Disposition: HOME SELF-CARE
[2020-05-03 17:06] VITALS: TEMP 97
[2020-05-03 17:31] VITALS: RESP 16
[2020-05-03] MEDS ORDERED: HYDROcodone/APAP 5-325MG 1 EACH TAB PO ONE (17:55)
[2020-05-03 17:56] VITALS: BP 159/92; PULSE 68
[2020-05-03] MEDS ORDERED: HYDROcodone/APAP 5-325MG 1 EACH TAB ONE (17:58)
--- NOTE | 2020-05-05 13:12 | P.ANPRN ---
Procedure Note - Anesthesia - Nerve Block Performed Bilateral Quadratus Lumborum Single Time Out Performed: Yes Date of Procedure: 05/03/20 Procedure Start Time: 12:57 Procedure Stop Time: 13:00 Location of Patient: PreOp Indication: Acute Post-Operative Pain, Requested by Surgeon Sedation Type: Sedate with meaningful contact maintained Preparation: Sterile Prep Position: Right Lateral Needle Types: Pajunk Needle Gauge: 21 Ultrasound used to visualize needle placement: Yes Ultrasound used to observe medication spread: Yes Blood Aspirated: No Pain Paresthesia on Injection Noted: No Resistance on Injection: Normal Image Stored and Saved: Yes Events: Uneventful and Well Tolerated (ropi .5% 20cc bilaterally)
== END 2020-05-03 18:56 | disposition home or self-care (01) ==
LOC: OR 11:09
PROVIDERS: ATTEND Student in an Organized Health Care Education/Training Program
DX: K43.6 Other and unspecified ventral hernia with obstruction, without gangrene (principal); E11.9 Type 2 diabetes mellitus without complications; K52.9 Noninfective gastroenteritis and colitis, unspecified; Z82.49 Family history of ischemic heart disease and other diseases of the circulatory system; Z80.8 Family history of malignant neoplasm of other organs or systems; Z87.891 Personal history of nicotine dependence; I25.10 Atherosclerotic heart disease of native coronary artery without angina pectoris; I10 Essential (primary) hypertension; E78.5 Hyperlipidemia, unspecified; K21.9 Gastro-esophageal reflux disease without esophagitis; Z95.1 Presence of aortocoronary bypass graft; Z98.890 Other specified postprocedural states; Z79.82 Long term (current) use of aspirin; Z79.899 Other long term (current) drug therapy
CPT/HCPCS: 49653; S2900; 64488; 76942; 80051; 85025; 86850; 86900; 86901; 88302; 93005

== ENCOUNTER 2021-08-18 15:30 | Observation (INO) | payer BC, OTHER ==
[2021-08-18] MEDS ORDERED: SODIUM CHLORIDE 0.9% 1,000 ML IV STA (16:10)
[2021-08-18] MEDS ORDERED: ONDANSETRON 4 MG/2 ML VIAL IVP STA (16:21)
[2021-08-18 16:43] LABS: Basophils % (A) 1 %; Eosinophils % (A) 0 %; HCT 52.7 % (39.0-53.0); HGB 18.8 gm/dL (13.0-17.5); Lymphocytes # (A) 0.7 k/uL (1.0-4.8); Lymphocytes % (A) 17 %; MCH 32.1 pg (25.0-35.0); MCHC 35.6 g/dL (31.0-37.0); MCV 90.3 fL (80.0-100.0); Mean Platelet Volume 7.9; Monocytes # (A) 0.4 k/uL (0-1.0); Monocytes % (A) 9 %; Neutrophils # (A) 2.8 k/uL (1.3-7.7); Neutrophils % (A) 70 %; Platelet Count 263 k/uL (150-450); RBC 5.83 m/uL (4.30-5.90); RDW 12.8 % (11.5-15.5)
[2021-08-18 17:08] LABS: Albumin 4.6 g/dL (3.5-5.0); Calcium 9.2 mg/dL (8.4-10.2); Magnesium 1.8 mg/dL (1.6-2.3); Phosphorus 3.2 mg/dL (2.5-4.5); Total Bilirubin 1.7 mg/dL (0.2-1.3); Total Protein 8.4 g/dL (6.3-8.2)
[2021-08-18 17:11] LABS: Potassium 5.9 mmol/L (3.5-5.1)
--- NOTE | 2021-08-18 17:17 | ED ---
Abdominal Pain HPI - General Chief Complaint: Abdominal Pain Stated Complaint: Blood work, sent by PCP Time Seen by Provider: 08/18/21 16:02 Source: patient, RN notes reviewed Mode of arrival: ambulatory Limitations: no limitations - History of Present Illness Initial Comments: This is a pleasant 62-year-old male sent in by his PCP for nausea, dry heaves, and lightheadedness. Patient had muscle aches which he attributed to atorvastatin which she started around . Patient states he started getting muscle aches in June which continued UNTIL last week when he stopped the medication. Patient also had COVID-19 which was diagnosed on August 02. Patient has had a cough since then. Productive foamy clear amount of sputum. No headache, no fever or chills, no changes in vision or hearing, no sore throat or difficulty with speech, no neck pain, no chest pain or shortness of breath, no abdominal pain, no nausea or vomiting, no changes in urination or bowel movements, no numbness or tingling, no extremity pain, no skin rashes or lesions. - Related Data Home Medications Medication Instructions Recorded Confirmed Aspirin 81 mg PO DAILY 03/22/14 08/18/21 Omeprazole 20 mg PO BID 03/22/14 08/18/21 Benazepril HCl [Lotensin] 40 mg PO DAILY 04/28/20 08/18/21 Cholecalciferol [Vitamin D3 (25 25 mcg PO DAILY 08/18/21 08/18/21 Mcg = 1000 Iu)] Fenofibrate [Lofibra] 160 mg PO DAILY 08/18/21 08/18/21 Previous Rx's Medication Instructions Recorded Metoprolol Tartrate [Lopressor] 50 mg PO BID #60 tab 04/20/17 hydroCHLOROthiazide [Hydrodiuril] 25 mg PO DAILY #30 tab 04/20/17 Allergies Allergy/AdvReac Type Severity Reaction Status Date / Time hayfever Allergy nasal Uncoded 05/03/20 11:35 congestion,sneezing Review of Systems ROS Statement: Those systems with pertinent positive or pertinent negative responses have been documented in the HPI. ROS Other: All systems not noted in ROS Statement are negative. Past Medical History Past Medical History: Coronary Artery Disease (CAD), Chest Pain / Angina, GERD/Reflux, GI Bleed, Hyperlipidemia, Hypertension, Myocardial Infarction (ME) Additional Past Medical History / Comment(s): intermittent problems with swallowing, rectal bleeding, Last Myocardial Infarction Date:: 2009 History of Any Multi-Drug Resistant Organisms: None Reported Past Surgical History: Appendectomy, Coronary Bypass/CABG, Heart Catheterization With Stent Additional Past Surgical History / Comment(s): 5 vessel CABG February 2010, EGD/colonoscopy Past Anesthesia/Blood Transfusion Reactions: No Reported Reaction Date of Last Stent Placement:: 2009 Past Psychological History: No Psychological Hx Reported Smoking Status: Former smoker Past Alcohol Use History: None Reported Past Drug Use History: None Reported - Past Family History Father Family Medical History: Cancer, Hyperlipidemia Additional Family Medical History / Comment(s): lung Mother Family Medical History: Cancer Additional Family Medical History / Comment(s): Cancer hx of colon CA. General Exam - General Exam Comments Initial Comments: Mild distress. Does not appear to be or toxic. Vital signs noted. Limitations: no limitations General appearance: alert, in no apparent distress Head exam: Present: atraumatic, normocephalic, normal inspection Eye exam: Present: normal appearance, PERRL, EOMI. Absent: scleral icterus, conjunctival injection, periorbital swelling ENT exam: Present: normal exam, mucous membranes moist Neck exam: Present: normal inspection. Absent: tenderness, meningismus, lymphadenopathy Respiratory exam: Present: normal lung sounds bilaterally. Absent: respiratory distress, wheezes, rales, rhonchi, stridor Cardiovascular Exam: Present: normal rhythm, tachycardia, normal heart sounds. Absent: systolic murmur, diastolic murmur, rubs, gallop, clicks GI/Abdominal exam: Present: soft, normal bowel sounds. Absent: distended, tenderness, guarding, rebound, rigid Extremities exam: Present: normal inspection, full ROM, normal capillary refill. Absent: tenderness, pedal edema, joint swelling, calf tenderness Back exam: Present: normal inspection Neurological exam: Present: alert, oriented X3, CN II-XII intact Psychiatric exam: Present: normal affect, normal mood Skin exam: Present: warm, dry, intact, normal color. Absent: rash Course Vital Signs 08/18/21 08/18/21 15:47 20:32 Temperature 99.9 F H 98.1 F Pulse Rate 106 H 81 Respiratory 18 16 Rate Blood Pressure 116/82 133/87 O2 Sat by Pulse 98 96 Oximetry Medical Decision Making - Medical Decision Making Patient's potassium is 5.9 but it is hemolyzed. Anion gap is 19 with CO2 of 17. Total bilirubin 1.7. AST is 153. NLT 58. Patient's creatinine is 1.64. BUNs 35. This is indicative of acute kidney injury. We will repeat the potassium and add-on creatinine kinase which I intended to order initially. Case discussed in detail with Dr. Wells. Patient will be admitted for acute kidney injury, COVID-19, and myopathy. The case was discussed in detail with ED attending physician. Presentation, sheyla hagen, treatment plan discussed in detail. - Lab Data Result diagrams: 08/19/21 06:00 08/19/21 06:00 Lab Results 08/18/21 08/18/21 08/18/21 Range/Units 16:35 16:35 16:35 WBC 4.0 (3.8-10.6) k/uL RBC 5.83 (4.30-5.90) m/uL Hgb 18.8 H (13.0-17.5) gm/dL Hct 52.7 (39.0-53.0) % MCV 90.3 (80.0-100.0) fL MCH 32.1 (25.0-35.0) pg MCHC 35.6 (31.0-37.0) g/dL RDW 12.8 (11.5-15.5) % Plt Count 263 (150-450) k/uL MPV 7.9 Neutrophils % 70 % Lymphocytes % 17 % Monocytes % 9 % Eosinophils % 0 % Basophils % 1 % Neutrophils # 2.8 (1.3-7.7) k/uL Lymphocytes # 0.7 L (1.0-4.8) k/uL Monocytes # 0.4 (0-1.0) k/uL Eosinophils # 0.0 (0-0.7) k/uL Basophils # 0.0 (0-0.2) k/uL Sodium 131 L (137-145) mmol/L Potassium 5.9 H TNP (3.5-5.1) mmol/L Chloride 95 L (98-107) mmol/L Carbon Dioxide 17 L (22-30) mmol/L Anion Gap 19 mmol/L BUN 35 H (9-20) mg/dL Creatinine 1.64 H (0.66-1.25) mg/dL Est GFR (CKD-EPI)AfAm 51 (>60 ml/min/1.73 sqM) Est GFR (CKD-EPI)NonAf 44 (>60 ml/min/1.73 sqM) Glucose 102 H (74-99) mg/dL Plasma Lactic Acid Fabrizio (0.7-2.0) mmol/L Calcium 9.2 (8.4-10.2) mg/dL Phosphorus 3.2 (2.5-4.5) mg/dL Magnesium 1.8 (1.6-2.3) mg/dL Total Bilirubin 1.7 H (0.2-1.3) mg/dL AST 153 H (17-59) U/L ALT 58 H (4-49) U/L Alkaline Phosphatase 59 (38-126) U/L Creatine Kinase 200 H (55-170) U/L Total Protein 8.4 H (6.3-8.2) g/dL Albumin 4.6 (3.5-5.0) g/dL Lipase 82 (23-300) U/L Urine Color Urine Appearance (Clear) Urine pH (5.0-8.0) Ur Specific [place] (1.001-1.035) Urine Protein (Negative) Urine Glucose (UA) (Negative) Urine Ketones (Negative) Urine Blood (Negative) Urine Nitrite (Negative) Urine Bilirubin (Negative) Urine Urobilinogen (<2.0) mg/dL Ur Leukocyte Esterase (Negative) Urine RBC (0-5) /hpf Urine WBC (0-5) /hpf Hyaline Casts (0-2) /lpf Urine Mucus (None) /hpf Coronavirus (PCR) (Not Detectd) 08/18/21 08/18/21 08/18/21 Range/Units 16:38 16:39 17:50 WBC (3.8-10.6) k/uL RBC (4.30-5.90) m/uL Hgb (13.0-17.5) gm/dL Hct (39.0-53.0) % MCV (80.0-100.0) fL MCH (25.0-35.0) pg MCHC (31.0-37.0) g/dL RDW (11.5-15.5) % Plt Count (150-450) k/uL MPV Neutrophils % % Lymphocytes % % Monocytes % % Eosinophils % % Basophils % % Neutrophils # (1.3-7.7) k/uL Lymphocytes # (1.0-4.8) k/uL Monocytes # (0-1.0) k/uL Eosinophils # (0-0.7) k/uL Basophils # (0-0.2) k/uL Sodium (137-145) mmol/L Potassium 3.6 (3.5-5.1) mmol/L Chloride (98-107) mmol/L Carbon Dioxide (22-30) mmol/L Anion Gap mmol/L BUN (9-20) mg/dL Creatinine (0.66-1.25) mg/dL Est GFR (CKD-EPI)AfAm (>60 ml/min/1.73 sqM) Est GFR (CKD-EPI)NonAf (>60 ml/min/1.73 sqM) Glucose (74-99) mg/dL Plasma Lactic Acid Fabrizio 1.4 (0.7-2.0) mmol/L Calcium (8.4-10.2) mg/dL Phosphorus (2.5-4.5) mg/dL Magnesium (1.6-2.3) mg/dL Total Bilirubin (0.2-1.3) mg/dL AST (17-59) U/L ALT (4-49) U/L Alkaline Phosphatase (38-126) U/L Creatine Kinase (55-170) U/L Total Protein (6.3-8.2) g/dL Albumin (3.5-5.0) g/dL Lipase (23-300) U/L Urine Color Urine Appearance (Clear) Urine pH (5.0-8.0) Ur Specific [place] (1.001-1.035) Urine Protein (Negative) Urine Glucose (UA) (Negative) Urine Ketones (Negative) Urine Blood (Negative) Urine Nitrite (Negative) Urine Bilirubin (Negative) Urine Urobilinogen (<2.0) mg/dL Ur Leukocyte Esterase (Negative) Urine RBC (0-5) /hpf Urine WBC (0-5) /hpf Hyaline Casts (0-2) /lpf Urine Mucus (None) /hpf Coronavirus (PCR) Detected A (Not Detectd) 08/18/21 Range/Units 18:45 WBC (3.8-10.6) k/uL RBC (4.30-5.90) m/uL Hgb (13.0-17.5) gm/dL Hct (39.0-53.0) % MCV (80.0-100.0) fL MCH (25.0-35.0) pg MCHC (31.0-37.0) g/dL RDW (11.5-15.5) % Plt Count (150-450) k/uL MPV Neutrophils % % Lymphocytes % % Monocytes % % Eosinophils % % Basophils % % Neutrophils # (1.3-7.7) k/uL Lymphocytes # (1.0-4.8) k/uL Monocytes # (0-1.0) k/uL Eosinophils # (0-0.7) k/uL Basophils # (0-0.2) k/uL Sodium (137-145) mmol/L Potassium (3.5-5.1) mmol/L Chloride (98-107) mmol/L Carbon Dioxide (22-30) mmol/L Anion Gap mmol/L BUN (9-20) mg/dL Creatinine (0.66-1.25) mg/dL Est GFR (CKD-EPI)AfAm (>60 ml/min/1.73 sqM) Est GFR (CKD-EPI)NonAf (>60 ml/min/1.73 sqM) Glucose (74-99) mg/dL Plasma Lactic Acid Fabrizio (0.7-2.0) mmol/L Calcium (8.4-10.2) mg/dL Phosphorus (2.5-4.5) mg/dL Magnesium (1.6-2.3) mg/dL Total Bilirubin (0.2-1.3) mg/dL AST (17-59) U/L ALT (4-49) U/L Alkaline Phosphatase (38-126) U/L Creatine Kinase (55-170) U/L Total Protein (6.3-8.2) g/dL Albumin (3.5-5.0) g/dL Lipase (23-300) U/L Urine Color Yellow Urine Appearance Clear (Clear) Urine pH 5.5 (5.0-8.0) Ur Specific [place] 1.019 (1.001-1.035) Urine Protein 1+ H (Negative) Urine Glucose (UA) Negative (Negative) Urine Ketones Trace H (Negative) Urine Blood Trace H (Negative) Urine Nitrite Negative (Negative) Urine Bilirubin Negative (Negative) Urine Urobilinogen <2.0 (<2.0) mg/dL Ur Leukocyte Esterase Negative (Negative) Urine RBC <1 (0-5) /hpf Urine WBC <1 (0-5) /hpf Hyaline Casts 1 (0-2) /lpf Urine Mucus Rare H (None) /hpf Coronavirus (PCR) (Not Detectd) - EKG Data EKG Comments: EKG done at 1716 and reviewed by the ED attending physician reveals sinus rhythm with first-degree AV block, nonspecific T-wave abnormalities noted in the lateral precordial leads as well as the inferior lateral leads. Baseline art ifact. Rate of 100. WI interval 222 ms. Normal intervals otherwise. When compared to the previous EKG from April 2020. There is a decrease in T-wave amplitude. [place] is normal and remains unchanged. First-degree AV block still remains. - Radiology Data Radiology results: report reviewed, image reviewed Disposition Clinical Impression: Acute kidney injury, COVID-19, Nausea, Myopathy, Hepatitis Disposition: ADMITTED IP TO THIS [facility] Condition: Stable Decision to Admit Reason: Admit from EC Decision Time: 20:10
--- NOTE | 2021-08-18 17:23 | XR ---
EXAMINATION TYPE: XR abdomen 2V DATE OF EXAM: 08/18/2021 3 views COMPARISON: NONE HISTORY: Nausea. Dizziness. TECHNIQUE: 3 views FINDINGS: Supine and upright views were obtained and show no sign of intestinal obstruction or pneumo peritoneum. Fecal pattern is normal. There is no evidence of a mass. Lung bases are clear. There are no pathologic calcifications over the kidneys. IMPRESSION: Nonacute abdomen.
--- NOTE | 2021-08-18 17:31 | XR ---
EXAMINATION TYPE: XR chest 1V DATE OF EXAM: 08/18/2021 COMPARISON: 04/18/2017 HISTORY: Abdominal pain. Chest pain TECHNIQUE: Single view FINDINGS: There is no heart failure nor confluent pneumonic infiltrate. Costophrenic angles are fairl y clear. There are sternal wires. There are no hilar masses. Heart size is normal. IMPRESSION: No active cardiopulmonary disease.
[2021-08-18 17:33] LABS: Creatine Kinase 200 U/L (55-170)
[2021-08-18] MEDS ORDERED: ACETAMINOPHEN TAB 500 MG TAB PO STA (18:00)
[2021-08-18] MEDS ORDERED: SODIUM CHLORIDE 0.9% 1,000 ML IV SCH (18:00)
[2021-08-18 18:51] LABS: Appearance,Urine Clear (Clear); Bilirubin,Urine Negative (Negative); Blood,Urine Trace (Negative); Color,Urine Yellow; Glucose,Urine (UA) Negative (Negative); Hyaline Casts,Urine 1 /lpf (0-2); Ketones,Urine Trace (Negative); Leukocyte Esterase,Urine Negative (Negative); Mucus,Urine Rare /hpf; Nitrite,Urine Negative (Negative); PH, Urine 5.5 (5.0-8.0); Protein,Urine 1+ (Negative); RBC,Urine <1 /hpf (0-5); Specific Gravity,Urine 1.019 (1.001-1.035); Urobilinogen,Urine <2.0 mg/dL (<2.0); WBC,Urine <1 /hpf (0-5)
[2021-08-18] MEDS ORDERED: TEMAZEPAM 15 MG CAP PO PRN (20:12)
[2021-08-18] MEDS ORDERED: NALOXONE 0.4 MG/ML 1 ML VIAL IV PRN (20:12)
[2021-08-18] MEDS ORDERED: ONDANSETRON 4 MG/2 ML VIAL IVP PRN (20:12)
[2021-08-18] MEDS: SODIUM CHLORIDE 0.9% 1,000 ML IV SCH (20:28)
[2021-08-18 20:52] LABS: INR 1.2 (<1.2); Prothrombin Time 12.9 sec (9.0-12.0)
[2021-08-18 20:53] LABS: Partial Thromboplastin Time 29.9 sec (22.0-30.0)
[2021-08-19] MEDS: SODIUM CHLORIDE 0.9% 1,000 ML IV SCH (03:03)
[2021-08-19 07:40] VITALS: BP 141/83; PULSE 69; RESP 18; TEMP 98.2
[2021-08-19 09:12] LABS: Basophils # (A) 0.01 X 10*3/uL (0.00-0.10); Basophils % (A) 0.3 %; Eosinophils # (A) 0.01 X 10*3/uL (0.04-0.35); Eosinophils % (A) 0.3 %; HCT 47.9 % (39.6-50.0); HGB 15.9 g/dL (13.0-17.0); Immature Grans, Automated 0.6 %; Lymphocytes # (A) 0.83 X 10*3/uL (0.90-5.00); MCH 29.6 pg (27.0-32.0); MCHC 33.2 g/dL (32.0-37.0); MCV 89.2 fL (80.0-97.0); Mean Platelet Volume 9.9 fL (9.5-12.2); Monocytes # (A) 0.58 X 10*3/uL (0.20-1.00); Monocytes % (A) 16.8 %; NRBC Per 100 WBC 0 /100 WBCS (0.0-0.0); Neutrophils # (A) 2.01 X 10*3/uL (1.80-7.70); Platelet Count 229 X 10*3/uL (140-440); RBC 5.37 X 10*6/uL (4.40-5.60); WBC 3.46 X 10*3/uL (4.50-10.00)
[2021-08-19 09:25] LABS: Albumin 3.5 g/dL (3.8-4.9); Albumin/Globulin Ratio 1.59 (1.60-3.17); BUN/Creat Ratio 17.06 Ratio (12.00-20.00); Calcium 8.4 mg/dL (8.7-10.3); Globulin 2.2 g/dL (1.6-3.3); Magnesium 1.9 mg/dL (1.5-2.4); Non-African American GFR(CKD) 42.3 (60.0-200.0); Potassium 4.3 mmol/L (3.5-5.5); Total Bilirubin 0.4 mg/dL (0.30-1.20); Total Protein 5.7 g/dL (6.2-8.2)
--- NOTE | 2021-08-19 16:52 | HP ---
HISTORY AND PHYSICAL CHIEF COMPLAINT: Myalgias, delirium, cyanosis, back pain and history of alcohol abuse. HISTORY OF PRESENT ILLNESS: This is another admission for this 61-year-old white male who has had a history of coronary artery disease treated here. He also has been a heavy consumer of alcohol and a heavy smoker. A month or two ago he was started on a statin. He also states he recently drank very heavily. About a week or so ago he stopped the statin because he was experiencing a lot of generalized presumably muscle pain and malaise. He also thought he was running a fever. When he came to the office, his color was off. He appeared to be slightly flushed and slightly cyanotic. There was no definite icterus. His urine was normal in color and was otherwise normal. There was no bilirubin or blood. He had a temperature of 100.1. His chest x-ray was probably normal. There might have been a very minimal left lower lobe infiltrate. He did have a slight, nonproductive cough. He recently had COVID. Because no other laboratory studies could be drawn at the hospital, including myoglobin, liver function studies, etc., he was sent to the emergency room, where he was evaluated and, mostly because of his symptoms and elevated temperature, it was felt that he should be admitted for further evaluation. REVIEW OF SYSTEMS: He denied any focal neurologic problems, difficulty with vision or hearing, hemoptysis, nausea, vomiting, hematemesis, melena, hematochezia, acholic stools, dark urine, frequency, urgency, dysuria, incontinence, etc. Past medical history, family history, and personal and social histories are noncontributory otherwise. He is NOT ALLERGIC TO ANY MEDICATION. He has been on fenofibrate 160 mg once a day, benazepril 40 mg once a day, hydrochlorothiazide 25 mg once a day, omeprazole 20 mg twice a day, Pepcid 20 mg twice a day, metoprolol 50 mg twice a day, vitamin D and aspirin. Statin had been stopped. The remainder of his history is unremarkable except for his heavy periodic drinking. He has not been smoking of late. PHYSICAL EXAMINATION: Blood pressure 124/76, pulse of 116 and regular, respirations of 36, and temperature of 100.1. In general he appeared to be slightly dusky. Skin was dry. Head, ears, eyes, nose, mouth and throat were otherwise normal. Neck veins were not distended. Chest was clear. Cardiac exam demonstrated tachycardia. The abdomen was slightly protuberant, soft and nontender. Bowel sounds were present. Extremities were normal. Neurologically he was intact, but he seemed a little bit less alert than usual. He is admitted to the hospital with diagnoses: 1. Myalgias. 2. Rule out rhabdomyolysis. 3. Rule out renal failure. 4. Rule out chemical hepatitis. 5. Chronic alcoholism. 6. History of hypertension. 7. History of alcoholism. 8. History of coronary artery disease. PLAN: 1. Bedrest. 2. IV fluids. 3. Appropriate blood work. 4. Continue to monitor his symptoms, especially watching out for renal function. MMODL / IJN: [id number] /
--- NOTE | 2021-08-19 17:37 | DS ---
DISCHARGE SUMMARY CHIEF COMPLAINT: Myalgias, COVID, FUO. HISTORY OF PRESENT ILLNESS AND PHYSICAL EXAMINATION: Details of this man's history and physical can be found in the initial workup. LABORATORY STUDIES: While he was in the hospital he had laboratory studies, details of which can be drawn found in the laboratory section of his chart. COURSE IN THE HOSPITAL: After admission he was placed on bedrest, started on intravenous fluids and monitored for possible rhabdomyolysis, sepsis or COVID pneumonia. His temperature came down and all of his studies were negative. Liver functions and renal function remained normal. He was doing well it was felt he could be discharged home on August 19. He will be followed as an outpatient. FINAL DIAGNOSIS: 1. Myalgias secondary to statin use. 2. Fever of unknown origin. 3. COVID pneumonia. 4. Coronary artery disease. 5. Hypertension. 6. Hyperlipidemia. OPERATIONS: None. CONSULTATIONS: None. He is improved. PEYTON / JAKI: [id number] /
--- NOTE | 2021-08-28 08:18 | CDI ---
Dear Dr. Wells, Please confirm Covid 19 Pneumonia diagnosis. Pt has a history of Covid in July, positive cough, productive foamy clear sputum, fever and positive lab test for Covid. Negative chest x-ray. -history of Covid 19 -Covid 19 pneumonia -Covid 19 infection -your diagnosis Thank you, Yas SIMS
--- NOTE | 2021-09-04 10:56 | CDI ---
Dear Dr. Wells, Please confirm Covid 19 Pneumonia diagnosis. Diagnosis list in discharge summary under assessment. Pt has a history of Covid in July, positive cough, productive foamy clear sputum, fever and positive lab test for Covid. Negative chest x-ray. Please specify below the line on this form. -history of Covid 19 -Covid 19 pneumonia -Covid 19 infection -your diagnosis Thank you, Yas English LEVI
--- NOTE | 2021-09-05 11:34 | MISC ---
MISCELLANOUS REPORT QUERY: History of COVID. MMODL / IJN: [id number] /
== END 2021-08-19 14:01 | disposition home or self-care (01) ==
LOC: EC 15:30 → 6NMEDSUR 20:12
PROVIDERS: ADMIT Family Medicine; ATTEND Family Medicine
DX: M79.10 Myalgia, unspecified site (principal); R50.9 Fever, unspecified; U07.1 COVID-19; T46.6X5A Adverse effect of antihyperlipidemic and antiarteriosclerotic drugs, initial encounter; N17.9 Acute kidney failure, unspecified; I25.10 Atherosclerotic heart disease of native coronary artery without angina pectoris; I10 Essential (primary) hypertension; E78.5 Hyperlipidemia, unspecified; M54.9 Dorsalgia, unspecified; R23.0 Cyanosis; R41.0 Disorientation, unspecified; T46.6X6A Underdosing of antihyperlipidemic and antiarteriosclerotic drugs, initial encounter; F10.20 Alcohol dependence, uncomplicated; G72.9 Myopathy, unspecified; R53.81 Other malaise; R11.0 Nausea; I44.0 Atrioventricular block, first degree; R42 Dizziness and giddiness; K21.9 Gastro-esophageal reflux disease without esophagitis; I25.2 Old myocardial infarction; R13.10 Dysphagia, unspecified; Z86.16 Personal history of COVID-19; Z79.82 Long term (current) use of aspirin; Z79.899 Other long term (current) drug therapy; J30.1 Allergic rhinitis due to pollen; Z87.19 Personal history of other diseases of the digestive system; Z87.891 Personal history of nicotine dependence; Z95.1 Presence of aortocoronary bypass graft; Z95.5 Presence of coronary angioplasty implant and graft; Z90.49 Acquired absence of other specified parts of digestive tract; Z80.0 Family history of malignant neoplasm of digestive organs; Z83.6 Family history of other diseases of the respiratory system; Z83.438 Family history of other disorder of lipoprotein metabolism and other lipidemia
CPT/HCPCS: 96361; 96374; 99285; 36415; 93005; 80053 ×2; 82550; 83605; 83690; 83735 ×2; 84100; 84132; 85025 ×2; 85610; 85730; 81001; 87040; 84145; 87635; 71045; 74019; G0378 ×2; J2405

== ENCOUNTER → 2023-10-22 | Outpatient (CLI) | payer OTHER ==
--- NOTE | 2023-10-23 05:46 | MR ---
MRI CERVICAL SPINE: CLINICAL HISTORY: Right arm weakness, left arm starting to have issues. Abnormal EMG. Neck pain. TECHNIQUE: Multiplanar, multisequence imaging of the cervical spine is performed without IV contrast. COMPARISON: None. FINDINGS: Sagittal images of the cervical spine show the craniocervical junction to appear within nor mal limits. The cervical and upper thoracic spinal cord is normal in course, caliber, and signal. Th ere is grade 1 retrolisthesis C3 on C4, C4 on C5, C5 on C6, and to lesser degree C6 on C7. The verte bral body heights are normal. Moderate multilevel disc space narrowing at these both levels is seen. Heterogeneous Modic type II endplate changes at C5-C6 level is noted. The bone marrow signal intensit y is within normal limits. Axial images show C2-C3 level to appear within normal limits. Axial images at C3-C4 levels with spondylolisthesis with some uncovertebral facet degenerative change causing mild right-sided neural foraminal narrowing. Axial images at C4-C5 levels show spondylolisthesis with broad-based posterior disc protrusion effaci ng anterior thecal sac and causing moderate left greater than right bilateral neural foraminal narrow ing. Axial images at C5-C6 levels with spondylolisthesis with broad-based right paracentral/foraminal disc protrusion effaces the anterolateral thecal sac and causing asymmetric moderate to severe right-side d neural foraminal narrowing. Axial images at C6-C7 level shows a left paracentral/foraminal disc protrusion effacing the anterolat eral thecal sac with mild to moderate bilateral neural foraminal narrowing. Axial images at C7-T1 level appear within normal limits. IMPRESSION: Multilevel spondylolisthesis and degenerative change in the cervical spine as detailed ab ove.
== END | disposition home or self-care (01) ==
LOC: RADMRIMAIN 21:15
PROVIDERS: ATTEND Family Medicine
DX: R94.131 Abnormal electromyogram [EMG] (principal); M47.812 Spondylosis without myelopathy or radiculopathy, cervical region; M43.12 Spondylolisthesis, cervical region; M99.71 Connective tissue and disc stenosis of intervertebral foramina of cervical region
CPT/HCPCS: 72141

== ENCOUNTER 2023-12-17 15:40 | Emergency (ER) | payer OTHER ==
--- NOTE | 2023-12-17 16:56 | ED ---
Back Pain HPI - General Source: patient, RN notes reviewed Limitations: no limitations <Jenna Noel - Last Filed: 12/17/23 16:55> <Alexi Luque - Last Filed: 12/18/23 00:52> - General Chief Complaint: Back Pain/Injury Stated Complaint: back pain Time Seen by Provider: 12/17/23 15:58 - History of Present Illness Initial Comments: Olvin pemberton is a 63-year-old male presents emergency department chief complaint of lumbar back pain. Patient has a history of chronic back pain where an MRI was performed recently. He states that he has been having a difficult time with sitting that leads to pain. He denies bladder or bowel incontinence, saddle anesthesias. He denies recent falls or injury to his back. (Jenna Noel) 63-year-old male presents to the ED with a chief complaint of back pain. Patient states history of chronic back pain. States that when he sits too long in certain positions pain worsens. States however when he is able to get up and walk around improves. However over the past few days secondary to pain he states he has been unable to move too much. Saddle anesthesia or bladder/bowel incontinence. Denies urinary symptoms. Other complaints at this time. No fever or chills. Does not follow with an sales merchandising specialist. (Alexi Luque) - Related Data Home Medications Medication Instructions Recorded Confirmed Aspirin 81 mg PO DAILY 03/22/14 08/18/21 Omeprazole 20 mg PO BID 03/22/14 08/18/21 Benazepril HCl [Lotensin] 40 mg PO DAILY 04/28/20 08/18/21 Cholecalciferol [Vitamin D3 (25 25 mcg PO DAILY 08/18/21 08/18/21 Mcg = 1000 Iu)] Fenofibrate [Lofibra] 160 mg PO DAILY 08/18/21 08/18/21 Previous Rx's Medication Instructions Recorded Metoprolol Tartrate [Lopressor] 50 mg PO BID #60 tab 04/20/17 hydroCHLOROthiazide [Hydrodiuril] 25 mg PO DAILY #30 tab 04/20/17 Cyclobenzaprine [Flexeril] 10 mg PO TID PRN #15 tab 12/18/23 Ibuprofen 600 mg PO Q6H #30 tab 12/18/23 Allergies Allergy/AdvReac Type Severity Reaction Status Date / Time hayfever Allergy nasal Uncoded 05/03/20 11:35 congestion,sneezing Review of Systems ROS Other: All systems not noted in ROS Statement are negative. <Jenna Noel - Last Filed: 12/17/23 16:55> ROS Other: All systems not noted in ROS Statement are negative. <Alexi Luque - Last Filed: 12/18/23 00:52> ROS Statement: Those systems with pertinent positive or pertinent negative responses have been documented in the HPI. Past Medical History Past Medical History: Coronary Artery Disease (CAD), Chest Pain / Angina, GERD/Reflux, GI Bleed, Hyperlipidemia, Hypertension, Myocardial Infarction (NM) Additional Past Medical History / Comment(s): intermittent problems with swallowing, rectal bleeding, Last Myocardial Infarction Date:: 2009 History of Any Multi-Drug Resistant Organisms: None Reported Past Surgical History: Appendectomy, Coronary Bypass/CABG, Heart Catheterization With Stent Additional Past Surgical History / Comment(s): 5 vessel CABG February 2010, EGD/colonoscopy Past Anesthesia/Blood Transfusion Reactions: No Reported Reaction Date of Last Stent Placement:: 2009 Past Psychological History: No Psychological Hx Reported Smoking Status: Former smoker Past Alcohol Use History: None Reported Past Drug Use History: None Reported - Past Family History Father Family Medical History: Cancer, Hyperlipidemia Additional Family Medical History / Comment(s): lung Mother Family Medical History: Cancer Additional Family Medical History / Comment(s): Cancer hx of colon CA. <Jenna Noel - Last Filed: 12/17/23 16:55> General Exam Limitations: no limitations <Jenna Noel - Last Filed: 12/17/23 16:55> General appearance: alert, in no apparent distress Eye exam: Present: normal appearance Neck exam: Present: normal inspection Respiratory exam: Present: normal lung sounds bilaterally Cardiovascular Exam: Present: regular rate GI/Abdominal exam: Present: soft Extremities exam: Present: normal inspection, other (Ambulates without difficul ty) Back exam: Present: other (No midline spinal tenderness to palpation. Left paraspinal tenderness to palpation.) Neurological exam: Present: alert, oriented X3 Skin exam: Present: warm <Alexi Luque - Last Filed: 12/18/23 00:52> - General Exam Comments Initial Comments: Visual Physical Exam Vital signs reviewed General: Well-appearing, nontoxic, no acute distress. Head: Normocephalic, atraumatic Eyes: PERRLA, EOMI ENT: Airway patent Chest: Nonlabored breathing Skin: No visual rash, normal skin tone Neuro: Alert and oriented 3 Musculoskeletal: No gross abnormalities (Jenna Noel) Course Vital Signs 12/17/23 12/17/23 15:52 19:34 Temperature 98.9 F Pulse Rate 72 85 Respiratory 16 18 Rate Blood Pressure 194/92 202/100 O2 Sat by Pulse 96 96 Oximetry Medical Decision Making <Jenna Noel - Last Filed: 12/17/23 16:55> <Alexi Luque - Last Filed: 12/18/23 00:52> - Medical Decision Making I completed the quick note portion of this chart signed Jenna Noel PA-C (Jenna Noel) Was pt. sent in by a medical professional or institution (DEBRA Sutton, ACTING SECTION CHIEF, urgent care, hospital, or shelter...) When possible be specific @ -No Did you speak to anyone other than the patient for history (EMS, parent, family, police, friend...)? What history was obtained from this source @ -No Did you review nursing and triage notes (agree or disagree)? Why? @ -I reviewed and agree with nursing and triage notes Were old charts reviewed (outside hosp., previous admission, EMS record, old EKG, old radiological studies, urgent care reports/EKG's, shelter records)? Report findings @ -No old charts were reviewed Differential Diagnosis (chest pain, altered mental status, abdominal pain women, abdominal pain men, vaginal bleeding, weakness, fever, dyspnea, syncope, headache, dizziness, GI bleed, back pain, seizure, CVA, palpatations, mental health, musculoskeletal)? @ -Differential Musculoskeletal Muscular strain, contusion, ligament sprain, fracture, arthritis, septic arthritis, bursitis, cellulitis, muscle spasm, nerve compression, DVT, arterial occlusion, herpes zoster, electrolyte abnormality, tumor.... This is not meant to be in all inclusive list EKG interpreted by me (3pts min.). @ -None X-rays interpreted by me (1pt min.). @ -Lumbar x-ray interpreted me showing degenerative changes however no acute process. CT interpreted by me (1pt min.). @ -None done U/S interpreted by me (1pt. min.). @ -None done What testing was considered but not performed or refused? (CT, X-rays, U/S, labs)? Why? @ -None What meds were considered but not given or refused? Why? @ -None Did you discuss the management of the patient with other professionals (professionals i.e. DrArmando, PA, ACTING SECTION CHIEF, lab, RT, psych nurse, social sciences research scientist, procurement services manager, teacher, toxics program officer, rn field case manager)? Give summary @ -No Was smoking cessation discussed for >3mins.? @ -No Was critical care preformed (if so, how long)? @ -No Were there social determinants of health that impacted care today? How? (Homelessness, low income, unemployed, alcoholism, drug addiction, transportation, low edu. Level, literacy, decrease access to med. care, care home, rehab)? @ -No Was there de-escalation of care discussed even if they declined (Discuss DNR or withdrawal of care, Hospice)? DNR status @ -No What co-morbidities impacted this encounter? (DM, HTN, Smoking, COPD, CAD, Cancer, CVA, ARF, Chemo, Hep., AIDS, mental health diagnosis, sleep apnea, morbid obesity)? @ -None Was patient admitted / discharged? Hospital course, mention meds given and route, prescriptions, significant lab abnormalities, going to OR and other pertinent info. @ -Discharge 63-year-old male presenting to the ED with complaints of back pain which she reports is chronic in nature. States it has been worsening over the past few days causing him to be unable to move as much. Patient provided analgesia here with significant improvement of pain is ambulating without difficulty. X-ray performed which revealed no evidence of acute process. No alarm symptoms at this time. Discharged home in stable condition with referral to see orthopedics. Discussed return precaution with patient who verbalized agreement. Undiagnosed new problem with uncertain prognosis? @ -No Drug Therapy requiring intensive monitoring for toxicity (Heparin, Nitro, Insulin, Cardizem)? @ -No Were any procedures done? @ -No Diagnosis/symptom? @ -Back pain Acute, or Chronic, or Acute on Chronic? @ -Acute on chronic Uncomplicated (without systemic symptoms) or Complicated (systemic symptoms)? @ -Uncomplicated Side effects of treatment? @ -No Exacerbation, Progression, or Severe Exacerbation? @ -No Poses a threat to life or bodily function? How? (Chest pain, USA, NM, pneumonia, PE, COPD, DKA, ARF, appy, cholecystitis, CVA, Diverticulitis, Homicidal, Suicidal, threat to staff... and all critical care pts) @ -No (Alexi Luque) Disposition <Jenna Noel - Last Filed: 12/17/23 16:55> Is patient prescribed a controlled substance at d/c from ED?: No Time of Disposition: 00:36 <Alexi Luque - Last Filed: 12/18/23 00:52> Clinical Impression: Back pain Disposition: HOME SELF-CARE Condition: Good Instructions (If sedation given, give patient instructions): Acute Low Back Pain (ED) Additional Instructions: Please return to the Emergency Department if symptoms worsen or any other concerns. Please follow-up with your PCP and/orthopedics. Prescriptions: Cyclobenzaprine [Flexeril] 10 mg PO TID PRN #15 tab PRN Reason: Muscle Spasm Ibuprofen 600 mg PO Q6H #30 tab Referrals: Ramsey Wells MD [Primary Care Provider] - 1-2 days Taiwo Virk DO [Doctor of Osteopathic Medicine] - 1-2 days
[2023-12-17 19:45] VITALS: RESP 18
[2023-12-17] MEDS: KETOROLAC 15 MG/ML 1 ML VIAL IM STA (20:34)
[2023-12-17] MEDS: HYDROmorphone 0.5 MG/0.5 ML SYRINGE IM STA (20:35)
[2023-12-17] MEDS: CYCLOBENZAPRINE 10 MG TAB PO STA (20:36)
--- NOTE | 2023-12-18 00:10 | XR ---
EXAMINATION TYPE: XR lumbar spine 2 or 3V DATE OF EXAM: 12/17/2023 9:11 PM CLINICAL INDICATION:Male, 63 years old with history of l lower back pain; [facility] COMPARISON: None TECHNIQUE: XR lumbar spine 2 or 3V - Frontal, lateral and coned down L5-S1 lateral views of the lumba r spine. FINDINGS: There are 5 lumbar-type vertebral bodies. Mineralization appears within normal limits. No osseous anca tructive process seen. Moderate multilevel degenerative disc disease and facet arthrosis. There is no rmal alignment of the lumbar vertebral bodies on the lateral projection. Slight, along apex right sco liosis of the spine on lateral view. Visualized bowel loops are somewhat gassy but not overly distended. IMPRESSION: 1. No radiographic evidence of acute compression fracture. 2. Moderate multilevel disc degeneration.
[2023-12-18] MEDS: CYCLOBENZAPRINE 10MG STARTER 3 TAB BTL PO STA (00:47)
[2023-12-18 00:54] VITALS: BP 191/106; PULSE 64; TEMP 98.4
== END 2023-12-18 00:54 | disposition home or self-care (01) ==
LOC: EC 15:40
DX: M54.50 Low back pain, unspecified (principal); Z87.891 Personal history of nicotine dependence; Z91.048 Other nonmedicinal substance allergy status
CPT/HCPCS: 72100; 99283; 96372 ×2; J1885; J1170

== ENCOUNTER 2024-07-28 18:29 | Inpatient (IN) | payer BC, OTHER ==
[2024-07-28] MEDS ORDERED: NALOXONE 0.4 MG/ML 1 ML VIAL IV PRN (19:01)
[2024-07-28] MEDS ORDERED: NITROGLYCERIN SL TABS 0.4 MG TAB SUBLINGUAL PRN ×2 (19:01→20:43)
[2024-07-28] MEDS: HEPARIN SODIUM 1,000 UN/ML (10ML VL) IVP STA (19:05)
--- NOTE | 2024-07-28 19:07 | ED ---
General Adult HPI - General Chief complaint: Chest Pain Stated complaint: chest pain/elevated bp Time Seen by Provider: 07/28/24 18:51 Source: patient, RN notes reviewed, old records reviewed Mode of arrival: ambulatory Limitations: no limitations - History of Present Illness Initial comments: 64-year-old male presenting for evaluation of anterior chest pain and chest pain into the upper back across the shoulders. This was after shoveling snow. Patient has history of previous DC and 5 vessel bypass in 2009. He is a current smoker. Patient states symptoms began approximately 1 hour prior to arrival. He states he has no further back pain and has a mild chest discomfort across the anterior chest. - Related Data Home Medications Medication Instructions Recorded Confirmed Omeprazole 20 mg PO BID 03/22/14 07/28/24 Evolocumab [Repatha Sureclick] 140 mg SQ Q14D 07/28/24 07/28/24 Losartan Potassium 100 mg PO DAILY 07/28/24 07/28/24 Previous Rx's Medication Instructions Recorded Metoprolol Tartrate [Lopressor] 50 mg PO BID #60 tab 04/20/17 Allergies Allergy/AdvReac Type Severity Reaction Status Date / Time No Known Allergies Allergy Verified 07/28/24 19:04 Review of Systems ROS Statement: Those systems with pertinent positive or pertinent negative responses have been documented in the HPI. ROS Other: All systems not noted in ROS Statement are negative. Past Medical History Past Medical History: Coronary Artery Disease (CAD), Chest Pain / Angina, GERD/Reflux, GI Bleed, Hyperlipidemia, Hypertension, Myocardial Infarction (DC) Additional Past Medical History / Comment(s): intermittent problems with swallowing, rectal bleeding, Last Myocardial Infarction Date:: 2009 History of Any Multi-Drug Resistant Organisms: None Reported Past Surgical History: Appendectomy, Coronary Bypass/CABG, Heart Catheterization With Stent Additional Past Surgical History / Comment(s): 5 vessel CABG February 2010, EGD/colonoscopy Past Anesthesia/Blood Transfusion Reactions: No Reported Reaction Date of Last Stent Placement:: 2009 Past Psychological History: No Psychological Hx Reported Smoking Status: Former smoker Past Alcohol Use History: Daily Past Drug Use History: Marijuana - Past Family History Father Family Medical History: Cancer, Hyperlipidemia Additional Family Medical History / Comment(s): lung Mother Family Medical History: Cancer Additional Family Medical History / Comment(s): Cancer hx of colon CA. General Exam Limitations: no limitations General appearance: alert, in no apparent distress Head exam: Present: atraumatic, normocephalic Eye exam: Present: normal appearance, PERRL ENT exam: Present: normal exam Neck exam: Present: normal inspection. Absent: tenderness, meningismus Respiratory exam: Present: normal lung sounds bilaterally. Absent: respiratory distress, wheezes Cardiovascular Exam: Present: regular rate, normal rhythm GI/Abdominal exam: Present: soft. Absent: distended, tenderness Extremities exam: Present: normal inspection, normal capillary refill Neurological exam: Present: alert, oriented X3 Psychiatric exam: Present: normal affect, normal mood Skin exam: Present: warm, dry, intact. Absent: cyanosis, diaphoretic Course Vital Signs 07/28/24 18:37 Temperature 97.9 F Pulse Rate 63 Respiratory 20 Rate Blood Pressure 194/116 O2 Sat by Pulse 97 Oximetry Medical Decision Making - Medical Decision Making Was pt. sent in by a medical professional or institution (, PA, X RAY NURSE, urgent care, hospital, or senior living...) When possible be specific @ -No Did you speak to anyone other than the patient for history (EMS, parent, family, police, friend...)? What history was obtained from this source @ -No Did you review nursing and triage notes (agree or disagree)? Why? @ -I reviewed and agree with nursing and triage notes Were old charts reviewed (outside hosp., previous admission, EMS record, old EKG, old radiological studies, urgent care reports/EKG's, senior living records)? Report findings @ -No old charts were reviewed Differential Chest Pain: Stable Angina, Unstable Angina, STEMI, NSTEMI Aortic Dissection, Pneumothorax, Musculoskeletal, Esophageal Spasm GERD, Cholecystitis, Pancreatitis, Zoster, this is not meant to be an all-inclusive list. EKG interpreted by me (3pts min.). @ -[Sinus bradycardia with first-degree AV block ST segment elevation in the precordial leads V1 through V5 no reciprocal change, ventricular rate of 59, IL interval 295, QRS duration 96, QTc 409 X-rays interpreted by me (1pt min.). @ -Single view chest x-ray: Normal mediastinum, cardiomegaly, no acute process. CT interpreted by me (1pt min.). @ -None done U/S interpreted by me (1pt. min.). @ -None done What testing was considered but not performed or refused? (CT, X-rays, U/S, labs)? Why? @ -None What meds were considered but not given or refused? Why? @ -None Did you discuss the management of the patient with other professionals (professionals i.e. , PA, X RAY NURSE, lab, RT, psych nurse, secondary social studies teacher, four slide machine operator, teacher, multisensor intelligence officer, patient case coordinator)? Give summary @Dr. Shaggy bello for cardiology, Dr. Wells will admit Was smoking cessation discussed for >3mins.? @ -No Was critical care preformed (if so, how long)? @ -Yes, 35 minutes Were there social determinants of health that impacted care today? How? (Homelessness, low income, unemployed, alcoholism, drug addiction, transportation, low edu. Level, literacy, decrease access to med. care, intermediate, rehab)? @ -No Was there de-escalation of care discussed even if they declined (Discuss DNR or withdrawal of care, Hospice)? DNR status @ -No What co-morbidities impacted this encounter? (DM, HTN, Smoking, COPD, CAD, Cancer, CVA, ARF, Chemo, Hep., AIDS, mental health diagnosis, sleep apnea, morbid obesity)? @ -Hypertension, CAD, current smoker Was patient admitted / discharged? Hospital course, mention meds given and route, prescriptions, significant lab abnormalities, going to OR and other pertinent info. @ -[64-year-old male presenting with chest pain after shoveling snow. EKG is obtained at approximately 30 minutes after arrival and does show ST segment elevation. Training Associate is activated immediately. Patient is given aspirin, nitroglycerin, heparin, Lipitor. Patient taken urgently to the Training Associate for intervention. Case discussed with Dr. Shaggy bello for cardiology and with Dr. Wells who will admit. Undiagnosed new problem with uncertain prognosis? @ -No Drug Therapy requiring intensive monitoring for toxicity (Heparin, Nitro, Insulin, Cardizem)? @ -No Were any procedures done? @ -No Diagnosis/symptom? @ -[STEMI Acute, or Chronic, or Acute on Chronic? @ -Acute Uncomplicated (without systemic symptoms) or Complicated (systemic symptoms)? @ -Complicated Side effects of treatment? @ -No Exacerbation, Progression, or Severe Exacerbation? @ -No Poses a threat to life or bodily function? How? (Chest pain, USA, DC, pneumonia, PE, COPD, DKA, ARF, appy, cholecystitis, CVA, Diverticulitis, Homicidal, Suicidal, threat to staff... and all critical care pts) @ -[Yes, STEMI, cardiogenic shock, arrhythmia, CHF Critical Care Time Critical Care Time: Yes Total Critical Care Time: 35 Disposition Clinical Impression: ST elevation myocardial infarction (STEMI) Disposition: ADMITTED IP TO THIS HOSP Condition: Serious Is patient prescribed a controlled substance at d/c from ED?: No Time of Disposition: 19:05
[2024-07-28] MEDS: MORPHINE SULFATE 4 MG/ML SYRINGE IVP STA (19:08)
[2024-07-28] MEDS: ATORVASTATIN 80 MG TAB PO STA (19:08)
[2024-07-28] MEDS: ASPIRIN 81 MG PO STA (19:08)
[2024-07-28] MEDS: IV FLUID CONTINUATION 1,000 ML IV ONE (19:17)
[2024-07-28 19:22] LABS: Basophils # (A) 0.1 k/uL (0-0.2); Basophils % (A) 1 %; Eosinophils # (A) 0.2 k/uL (0-0.7); Eosinophils % (A) 2 %; HCT 47.8 % (39.0-53.0); HGB 15.5 gm/dL (13.0-17.5); Lymphocytes # (A) 4.5 k/uL (1.0-4.8); Lymphocytes % (A) 42 %; MCH 30.3 pg (25.0-35.0); MCHC 32.3 g/dL (31.0-37.0); MCV 93.7 fL (80.0-100.0); Mean Platelet Volume 7.1; Monocytes # (A) 0.7 k/uL (0-1.0); Monocytes % (A) 6 %; Neutrophils % (A) 47 %; Platelet Count 249 k/uL (150-450); RDW 13.4 % (11.5-15.5); WBC 10.6 k/uL (3.8-10.6)
[2024-07-28] MEDS: ASPIRIN 325 MG TAB PO STA (19:25)
[2024-07-28 19:34] LABS: ALT 19 U/L (4-49); AST 37 U/L (17-59); African American GFR (CKD) 82 (>60 ml/min/1.73 sqM); Albumin 4.6 g/dL (3.5-5.0); Alcohol 11 mg/dL; Alkaline Phosphatase 96 U/L (38-126); Anion Gap 11 mmol/L; Blood Urea Nitrogen 15 mg/dL (9-20); Calcium 9.6 mg/dL (8.4-10.2); Carbon Dioxide 26 mmol/L (22-30); Chloride 102 mmol/L (98-107); Glucose 86 mg/dL (74-99); Magnesium 1.9 mg/dL (1.6-2.3); Non-African American GFR(CKD) 71 (>60 ml/min/1.73 sqM); Potassium 3.8 mmol/L (3.5-5.1); Sodium 139 mmol/L (137-145); Total Bilirubin 0.9 mg/dL (0.2-1.3)
[2024-07-28] MEDS: LIDOCAINE 1% INJ 10MG/ML (20 ML MDV) SQ ONE (19:35)
[2024-07-28] MEDS: MIDAZOLAM 2 MG/2 ML VIAL IVP ONE ×3 (19:35→19:48)
--- NOTE | 2024-07-28 19:42 | XR ---
EXAMINATION TYPE: XR chest 1V portable DATE OF EXAM: 07/28/2024 7:09 PM COMPARISON: 08/18/2021 CLINICAL INDICATION: Male, 64 years old with history of chest pain, TECHNIQUE: XR chest 1V portable view(s) obtained. FINDINGS: The heart size is normal. The pulmonary vasculature is normal. The lungs are clear. IMPRESSION: 1. No acute pulmonary process. [facility], , 07/28/2024 7:40 PM
[2024-07-28 20:10] LABS: Partial Thromboplastin Time 25.3 sec (22.0-30.0); Prothrombin Time 10.6 sec (10.0-12.5)
[2024-07-28] MEDS: HEPARIN SODIUM 1,000 UN/ML (10ML VL) IVP ONE (20:17)
[2024-07-28] MEDS: ENALAPRILAT 1.25 MG/ML 1 ML VIAL IVP ONE (20:30)
[2024-07-28] MEDS: hydrALAZINE HCL 20 MG/ML 1 ML VIAL IVP ONE (20:30)
[2024-07-28] MEDS ORDERED: MAG HYDROX/AL HYDROX/SIMETH 30 ML CUP PO PRN (20:43)
[2024-07-28] MEDS ORDERED: ATROPINE SULFATE 0.1 MG/ML 10ML SYRINGE IV PRN (20:43)
[2024-07-28] MEDS ORDERED: RX INFO: IV CONTRAST WAS GIVEN 1 EACH MISC MISCELLANE PRN (20:43)
[2024-07-28] MEDS ORDERED: ZOLPIDEM 5 MG TAB PO PRN (20:43)
[2024-07-28] MEDS: NITROGLYCERIN-D5W PMX 50 MG in DEXTROSE/WATER 1 250ML.BAG IV ONE (20:51)
[2024-07-28] MEDS: IOPAMIDOL-370 100ML BTL INJ ONE (20:52)
--- NOTE | 2024-07-28 20:52 | P.PCN ---
Date of Procedure: 07/28/24 Operative Findings: CARDIAC CATHETERIZATION AND PERCUTANEOUS CORONARY INTERVENTION PERFORMING PHYSICIAN: Jos Coon MD, [facility] PROCEDURE PERFORMED: 1. Selective right and left coronary angiogram and KOENIG to LAD angiogram and SVG to OM1 and SVG to OM 2 angiogram and radial artery bypass to PDA angiogram 2. Successful stenting of mid RCA using 4.0 x 48 mm Xience ADRIANNA with an excellent angiographic results with adjunctive use of IVUS 3. Adjunctive use of IVUS 4. And aortic root angiogram and left heart catheterization 5. Ultrasound-guided access of the right common femoral artery and selective right common femoral artery angiogram INDICATION: Chest discomfort in this 64-year-old gentleman who presented to the emergency department and underwent a workup including an EKG showing findings concerning for ischemia. COMPLICATION: None APPROACH: Right common femoral artery LEVEL OF SEDATION: Moderate with the sedation time off 65 minutes PROCEDURE DESCRIPTION: After obtaining informed consent the patient was brought to the cardiac Cage Operator. The right common femoral artery was cannulated using micropuncture technique under ultrasound guidance a micropuncture wire passed easily then I placed a 6 [place] 11 cm sheath at the right common femoral artery with after that I did selective left and right coronary angiogram using JL 4 and JR4 catheters. The KOENIG to LAD angiogram was performed using the JR4 catheter. The angiogram of the SVG to first and second obtuse marginal branches performed using an LCB catheter. The radial artery bypass to possible PDA angiogram was performed using multipurpose catheter be left heart catheterization was performed using a pigtail catheter. An aortic root angiogram was performed also using a pigtail catheter. I decided to intervene on the RCA with anticoagulation was initiated using heparin with continuous ACT monitoring. Subsequently the RCA was engaged using JR4 guiding catheter with it was wired using a run-through wire. IVUS was performed and showed a diameter between 3.5 to 40 mm. Predilatation was performed using 30 mm balloon before I deployed 4.0 x 48 mm stent which was postdilated using 3.75 mm NC balloon with final angiogram showing excellent angiographic results and the procedure was completed with no complication. By the end we did selective right common femoral artery angiogram. SELECTIVE CORONARY ANGIOGRAM: The right coronary artery: Large-caliber vessel and a dominant vessel with severe tubular lesion involving the midportion Left main: Has an 80 to 90% lesion The left circumflex: Is occluded The left anterior descending artery: Is subtotally occluded KOENIG to LAD is patent The SVG to first OM is patent The SVG to second OM is patent The bypasses to RCA/PDA was likely represent radial artery and appeared to be atrophic with no outflow seen Hemodynamics The LVEDP was about 28 mmHg with mild gradient was identified across aortic valve Aortic root angiogram Was performed in the MAGY projection and using a power injection. CONCLUSION: Critical left main disease. Patent KOENIG to LAD. Patent SVG to first OM and patent SVG to second OM Critical disease involving the mid RCA. The bypass to PDA is atrophic with no outflow. Successful PCI of the mid RCA Elevated left-sided filling pressure POSTPROCEDURE MANAGEMENT: 1. Dual antiplatelet therapy using aspirin and Brilinta for 12 month 2. Aggressive cholesterol control 3. Follow-up with the patient
[2024-07-28] MEDS: HEPARIN SODIUM,PORCINE (1 ML) 2,500 UNIT in SODIUM CHLORIDE 0.9% 250 ML IRRIGATION ONE (21:05)
[2024-07-28] MEDS: HEPARIN SODIUM,PORCINE 10,000 UNIT in SODIUM CHLORIDE 0.9% 1,000 ML IRRIGATION ONE (21:05)
--- NOTE | 2024-07-28 21:05 | P.CRDCN ---
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 He presented to the emergency department complaining of upper chest and upper back discomfort started within the last 24 to 48 hours. The discomfort was a pressure/dull feeling with no radiation to the arms or neck and it was associated with shortness of breath. No sweating and no dizziness or lightness and no presyncope or syncope. He underwent further evaluation in the emergency department including an EKG showing sinus mechanism with ST changes anteriorly concerning for acute coronary event. With that he was taken emergently to the cardiac Director Building where he underwent an emergent heart catheterization and that revealed critical disease involving the left main coronary artery with patent [place] to LAD and patent SVG to first and second obtuse marginal branch and also he was found to have critical disease involving the RCA in the midportion with a long tubular lesion but there was what is seems to be a radial artery bypass appears to be atrophic with no outflow. He underwent PCI of the RCA with good angiographic results and with no complication. The patient tolerated the procedure very well. During the procedure he was hypertensive we had to start the patient on nitro as well. Because he stil having ongoing chest discomfort in the upper back and upper chest I am going to obtain a CT of the chest to rule out any other etiology for the chest discomfort including any pulmonary embolism versus aortic dissection. The physical examination is remarkable for stable vital signs with a distant heart sounds and regular rate and rhythm and diminished breathing sounds bilaterally and no edema was noted in the lower extremities Assessment Chest discomfort EKG changes concerning for ischemia CAD status post CABG as described above History of alcohol use History of smoking Plan Start the patient on dual antiplatelet therapy Anti-ischemic medication Nitro drip to control the blood pressure Obtain a CTA of the chest ICU admission An echocardiogram with Doppler Follow-up with the patient Past Medical History Past Medical History: Coronary Artery Disease (CAD), Chest Pain / Angina, GERD/Reflux, GI Bleed, Hyperlipidemia, Hypertension, Myocardial Infarction (DE) Additional Past Medical History / Comment(s): intermittent problems with swallowing, rectal bleeding, Last Myocardial Infarction Date:: 2009 History of Any Multi-Drug Resistant Organisms: None Reported Past Surgical History: Appendectomy, Coronary Bypass/CABG, Heart Catheterization With Stent Additional Past Surgical History / Comment(s): 5 vessel CABG February 2010, EGD/colonoscopy Past Anesthesia/Blood Transfusion Reactions: No Reported Reaction Date of Last Stent Placement:: 2009 Past Psychological History: No Psychological Hx Reported Smoking Status: Former smoker Past Alcohol Use History: Daily Past Drug Use History: Marijuana - Past Family History Father Family Medical History: Cancer, Hyperlipidemia Additional Family Medical History / Comment(s): lung Mother Family Medical History: Cancer Additional Family Medical History / Comment(s): Cancer hx of colon CA. Medications and Allergies Home Medications Medication Instructions Recorded Confirmed Type Omeprazole 20 mg PO BID 03/22/14 07/28/24 History Metoprolol Tartrate [Lopressor] 50 mg PO BID #60 tab 04/20/17 07/28/24 Rx Evolocumab [Repatha Sureclick] 140 mg SQ Q14D 07/28/24 07/28/24 History Losartan Potassium 100 mg PO DAILY 07/28/24 07/28/24 History Allergies Allergy/AdvReac Type Severity Reaction Status Date / Time No Known Allergies Allergy Verified 07/28/24 19:04 Physical Exam Vitals: Vital Signs Temp Pulse Resp BP Pulse Ox 07/28/24 19:12 88 20 212/155 98 07/28/24 18:41 86 18 205/155 98 07/28/24 18:37 97.9 F 63 20 194/116 97 Intake and Output 07/28/24 07/28/24 07/28/24 06:59 14:59 22:59 Intake Total 505 Balance 505 Intake: IV 505 Other: Weight 83.915 kg Results 07/28/24 18:51 07/28/24 18:51 Cardiac Enzymes 07/28/24 07/28/24 Range/Units 18:51 18:51 AST 37 (17-59) U/L Troponin I 0.029 (0.000-0.034) ng/mL Coagulation 07/28/24 Range/Units 18:51 PT 10.6 (10.0-12.5) sec APTT 25.3 (22.0-30.0) sec CBC 07/28/24 Range/Units 18:51 WBC 10.6 (3.8-10.6) k/uL RBC 5.10 (4.30-5.90) m/uL Hgb 15.5 (13.0-17.5) gm/dL Hct 47.8 (39.0-53.0) % Plt Count 249 (150-450) k/uL Comprehensive Metabolic Panel 07/28/24 Range/Units 18:51 Sodium 139 (137-145) mmol/L Potassium 3.8 (3.5-5.1) mmol/L Chloride 102 (98-107) mmol/L Carbon Dioxide 26 (22-30) mmol/L BUN 15 (9-20) mg/dL Creatinine 1.09 (0.66-1.25) mg/dL Glucose 86 (74-99) mg/dL Calcium 9.6 (8.4-10.2) mg/dL AST 37 (17-59) U/L ALT 19 (4-49) U/L Alkaline Phosphatase 96 (38-126) U/L Total Protein 7.0 (6.3-8.2) g/dL Albumin 4.6 (3.5-5.0) g/dL Current Medications Generic Name Dose Route Start Last Admin Trade Name Freq PRN Reason Stop Dose Admin Al Hydroxide/Mg Hydroxide 30 ml 07/28/24 20:43 Mag Hydrox/Al Hydrox/Simeth 30 Ml Cup PO Q4HR PRN Heartburn Aspirin 81 mg 07/29/24 09:00 Aspirin 81 Mg PO DAILY [facility] Atorvastatin Calcium 80 mg 07/29/24 21:00 Atorvastatin 80 Mg Tab PO HS PAZ Atropine Sulfate 0.5 mg 07/28/24 20:43 Atropine Sulfate 0.1 Mg/Ml 10ml Syringe IV ONCE PRN Symptomatic Bradycardia Sodium Chloride 1,000 ml/ IV 1,000 mls @ 75 mls/hr 07/28/24 20:45 Solution IV 07/29/24 02:44 .[id number] [facility] Lisinopril 10 mg 07/29/24 09:00 Lisinopril 10 Mg Tab PO DAILY [facility] Metoprolol Tartrate 25 mg 07/28/24 21:00 Metoprolol Tartrate 25 Mg Tab PO BID [facility] Miscellaneous Information 1 each 07/28/24 20:43 Rx Info: Iv Contrast Was Given 1 Each Misc MISCELLANE 07/30/24 20:43 DAILY PRN Per Protocol Naloxone HCl 0.2 mg 07/28/24 19:01 Naloxone 0.4 Mg/Ml 1 Ml Vial IV Q2M PRN Opioid Reversal Nitroglycerin 0.4 mg 07/28/24 20:43 Nitroglycerin Sl Tabs 0.4 Mg Tab SUBLINGUAL Q5M PRN Chest Pain Ticagrelor 90 mg 07/28/24 21:00 Ticagrelor 90 Mg Tab PO BID PAZ Protocol Zolpidem Tartrate 5 mg 07/28/24 20:43 Zolpidem 5 Mg Tab PO HS PRN Insomnia Intake and Output 07/28/24 07/28/24 07/28/24 06:59 14:59 22:59 Intake Total 505 Balance 505 Intake: IV 505 Other: Weight 83.915 kg Patient Weight 07/29/24 06:59 Weight 83.915 kg 07/28/24 18:51 07/28/24 18:51
[2024-07-28 21:34] LABS: Glucose,Whole Blood 87 mg/dL (70-110)
[2024-07-28] MEDS: SODIUM CHLORIDE 0.9% 1,000 ML in EMPTY BAG 1 BAG IV SCH (22:20)
[2024-07-28] MEDS: METOPROLOL TARTRATE 25 MG TAB PO SCH (22:21)
[2024-07-28] MEDS: TICAGRELOR 90 MG TAB PO SCH (22:21)
[2024-07-28] MEDS: NITROGLYCERIN-D5W PMX 50 MG in DEXTROSE/WATER 1 250ML.BAG IV SCH (22:39)
[2024-07-29 00:28] LABS: ALT 16 U/L (4-49); AST 33 U/L (17-59); African American GFR (CKD) >90 (>60 ml/min/1.73 sqM); Albumin 3.7 g/dL (3.5-5.0); Alkaline Phosphatase 87 U/L (38-126); Anion Gap 10 mmol/L; Blood Urea Nitrogen 12 mg/dL (9-20); Calcium 8.6 mg/dL (8.4-10.2); Carbon Dioxide 21 mmol/L (22-30); Chloride 106 mmol/L (98-107); Glucose 102 mg/dL (74-99); Non-African American GFR(CKD) 89 (>60 ml/min/1.73 sqM); Potassium 3.2 mmol/L (3.5-5.1); Sodium 137 mmol/L (137-145); Total Protein 5.8 g/dL (6.3-8.2)
--- NOTE | 2024-07-29 03:35 | CT ---
EXAM: CT Angiography Chest With Intravenous Contrast CLINICAL HISTORY: ITS.REASON CT Reason: r/o aortic dissection and PE TECHNIQUE: Axial computed tomographic angiography images of the chest with intravenous contrast. CTDI is 19.8 mGy and DLP is 414.6 mGy-cm. This CT exam was performed using one or more of the following dose reduction techniques: automated exposure control, adjustment of the mA and/or kV according to patient size, and/or use of iterative reconstruction technique. MIP reconstructed images were created and reviewed. COMPARISON: None FINDINGS: Pulmonary arteries: Unremarkable. No pulmonary embolus identified. Aorta: No acute findings. No aortic aneurysm or dissection. Lungs: Emphysematous changes. No focal consolidation. Pleural space: Unremarkable. No significant effusion. No pneumothorax. Heart: Median sternotomy and CABG changes. Coronary artery calcifications. No cardiomegaly. No significant pericardial effusion. No evidence of RV dysfunction. Bones/joints: Degenerative changes of the spine. No acute fracture. No dislocation. Soft tissues: Unremarkable. Lymph nodes: Unremarkable. No enlarged lymph nodes. Gallbladder and bile ducts: Probable vicarious excretion of contrast in the gallbladder. Spleen: Small splenule. Kidneys and ureters: Right renal cysts partially visualized. Excreting contrast in the right renal collecting system partially visualized. IMPRESSION: 1. No pulmonary embolus identified. 2. No aortic aneurysm or dissection. 3. Emphysematous changes. No focal consolidation.
[2024-07-29 05:53] LABS: African American GFR (CKD) >90 (>60 ml/min/1.73 sqM); Non-African American GFR(CKD) 88 (>60 ml/min/1.73 sqM)
--- NOTE | 2024-07-29 08:56 | P.PN ---
Subjective Progress Note Date: 07/29/24 HPI: [This is a 64-year-old gentleman who underwent aortocoronary bypass surgery more than 10 years ago details unavailable. He presented with chest pain and anterior ST elevation yesterday underwent preoperative cardiac cath which revealed that KOENIG to LAD was patent. He also had SVG to OM1 and another SVG to OM 2 both of which were patent. The graft to the RCA was atrophic and [place] RCA was stented. Patient continued to have some mid scapular pain and a CT angiogram revealed no evidence of any aortic pathology or of any pulmonary embolism. He is doing well echo was being performed and appears to revealed normal systolic function. With a questionable inferobasal hypokinesia. PHYSICIAL EXAM: Vitals are stable no JVD S1-S2 heard normally lungs are clear abdomen and lower extremity exam is unremarkable right groin is clean and dry. ENROLLMENT MANAGEMENT MANAGER is normal. IMPRESSION: 1. Acute anterior ST elevation [place] status post stenting of [place] RCA. KOENIG to LAD is patent. 2. Hypertension. 3. Hypercholesterolemia. 4.. 5.. RECOMMENDATIONS: Continue current medications which include beta-blockers, stati ns and dual antiplatelet therapy. Will check serial troponins and review formal echo report. Discussed with patient. Objective - Vital Signs Vital signs: Vital Signs Temp 98.7 F 07/28/24 21:45 Pulse 60 07/29/24 07:00 Resp 19 07/29/24 07:00 BP 122/76 07/29/24 07:00 Pulse Ox 96 07/29/24 07:00 FiO2 Intake & Output 07/28/24 07/29/24 07/29/24 18:59 06:59 18:59 Intake Total 1266.900 75 Output Total 1225 0 Balance 41.900 75 Weight 83.915 kg 83.3 kg Intake: IV 505 Intake, IV Titration 761.900 75 Amount Nitroglycerin-D5w Pmx 50 11.900 mg In Dextrose/Water 1 250ml.bag @ 5 MCG/MIN 1.5 mls/hr IV .Q24H PAZ Rx#: [id number] Sodium Chloride 0.9% 1, 750 75 000 ml In Empty Bag 1 bag @ 75 mls/hr IV .[id number] PAZ Rx#:[id number] Output: Urine 1225 0 Other: Voiding Method Urinal # Voids 0 0 - Labs CBC & Chem 7: 07/28/24 18:51 07/29/24 05:14 Labs: Abnormal Lab Results - Last 24 Hours (Table) 07/28/24 Range/Units 23:41 Potassium 3.2 L (3.5-5.1) mmol/L Carbon Dioxide 21 L (22-30) mmol/L Glucose 102 H (74-99) mg/dL Total Protein 5.8 L (6.3-8.2) g/dL
[2024-07-29] MEDS ORDERED: Potassium Replacement Protocol 1 EACH MISC MISCELLANE PRN (09:06)
[2024-07-29] MEDS: POTASSIUM CHLORIDE ER 20 MEQ TAB.ER PO SCH ×2 (09:14→20:40)
[2024-07-29] MEDS: ASPIRIN 81 MG PO SCH (09:15)
[2024-07-29] MEDS: lisinopriL 10 MG TAB PO SCH (09:15)
[2024-07-29 10:50] VITALS: BMI 27.9
[2024-07-29] MEDS: LOSARTAN 50 MG TAB PO STA (15:51)
[2024-07-29] MEDS ORDERED: LORazepam 0.5 MG TAB PO PRN (18:44)
[2024-07-29] MEDS ORDERED: LORazepam 1 MG TAB PO PRN ×2 (18:44)
[2024-07-29] MEDS: LORazepam 1 MG TAB PO STA (18:52)
[2024-07-29] MEDS: ATORVASTATIN 80 MG TAB PO SCH (20:40)
[2024-07-29] MEDS: PANTOPRAZOLE 40 MG TABLET PO SCH (20:42)
[2024-07-29] MEDS ORDERED: METOPROLOL TARTRATE 50 MG TAB PO SCH (21:00)
--- NOTE | 2024-07-29 21:55 | PN ---
PROGRESS NOTE DATE OF SERVICE: 07/29/2024 CHIEF COMPLAINT: Acute ME. HISTORY OF PRESENT ILLNESS: This gentleman is feeling well. He is not short of breath or having any further chest pain. PHYSICAL EXAMINATION: CHEST: Clear. CARDIAC: Demonstrates sinus tachycardia. ABDOMEN: Soft and nontender. EXTREMITIES: Normal. IMPRESSION: 1. Acute myocardial infarction. 2. Coronary artery disease. 3. History of hypertension. 4. History of hyperlipidemia. 5. Statin allergy. 6. Hypokalemia. PLAN: Correct hypokalemia and continue to follow with Cardiology. He may be going to a regular floor. MMODL / IJN: [id number] /
--- NOTE | 2024-07-29 22:43 | HP ---
HISTORY AND PHYSICAL CHIEF COMPLAINT: Chest pain. HISTORY OF PRESENT ILLNESS: This is another admission for this -[id number] gentleman. He has had a prior myocardial infarction and has had a coronary artery bypass graft. He has been doing fairly well over the last several years. He has continued to smoke. When he was seen in the office, his blood pressure is often slightly elevated. He states he has been taking his medications. He was shoveling snow when he had some discomfort across the upper chest and felt slightly short of breath. He took his blood pressure, which he does not routinely follow and it was 240/180. He decided to come to the emergency room. He did not have any significant diaphoresis, shortness of breath, etc. He did feel a little bit of pain in the back of the neck. REVIEW OF SYSTEMS: He has had no fever, chills, cough, hemoptysis, nausea, vomiting, neurologic deficits, etc. Past medical history, family history, personal and social histories are all otherwise unremarkable or noncontributory. He is allergic to statins. MEDICATIONS: He is on. 1. Repatha. 2. Omeprazole. 3. Losartan. 4. Metoprolol. 5. Aspirin. Remainder of his history is unremarkable. PHYSICAL EXAMINATION: VITAL SIGNS: Blood pressure is 194/116, pulse is 84, respirations of 35. GENERAL: He appeared to be in no acute distress. Face was flushed. HEAD, EARS, EYES, NOSE, MOUTH, AND THROAT: Normal otherwise. NECK: Neck veins are not distended. Thyroid was not enlarged. CHEST: Clear. CARDIAC: Demonstrated normal sinus rhythm with no murmurs or extra sounds. ABDOMEN: Soft and nontender. EXTREMITIES: Normal. NEUROLOGICAL: He is intact. IMPRESSION: He is admitted to the hospital with diagnoses of, 1. ST elevation myocardial infarction. 2. Atherosclerotic cardiovascular disease. 3. Uncontrolled hypertension. 4. Hyperlipidemia. 5. Nicotine abuse. PLAN: 1. Bedrest. 2. The patient was taken to the laborer petroleum [facility], and was found to have a right coronary artery stenosis, which was stented. 3. Control blood pressure. MMODL / IJN: [id number] /
[2024-07-30] MEDS: POTASSIUM CHLORIDE ER 20 MEQ TAB.ER PO SCH (00:47)
--- NOTE | 2024-07-30 08:58 | P.PN ---
Subjective Progress Note Date: 07/30/24 Principal diagnosis: 07/29/24 This is a 64-year-old gentleman who underwent aortocoronary bypass surgery more than 10 years ago details unavailable. He presented with chest pain and anterior ST elevation yesterday underwent preoperative cardiac cath which revealed that KOENIG to LAD was patent. He also had SVG to OM1 and another SVG to OM 2 both of which were patent. The graft to the RCA was atrophic and [place] RCA was stented. Patient continued to have some mid scapular pain and a CT angiogram revealed no evidence of any aortic pathology or of any pulmonary embolism. He is doing well echo was being performed and appears to revealed normal systolic function. With a questionable inferobasal hypokinesia. PHYSICIAL EXAM: Vitals are stable no JVD S1-S2 heard normally lungs are clear abdomen and lower extremity exam is unremarkable right groin is clean and dry. METROLOGIST is normal. IMPRESSION: 1. Acute anterior ST elevation [place] status post stenting of [place] RCA. KOENIG to LAD is patent. 2. Hypertension. 3. Hypercholesterolemia. 4.. 5.. RECOMMENDATIONS: Continue current medications which include beta-blockers, statins and dual antiplatelet therapy. Will check serial troponins and review formal echo report. Discussed with patient. 07/30 HPI: This morning patient feels very well no chest pain or shortness of breath. He is echo has not been reported but I reviewed it LV systolic function is good. He was slightly hypertensive yesterday. I am recommending that we discontinue lisinopril continue losartan add amlodipine and continue beta-kia and Brilinta as well as aspirin and atorvastatin. Vitals are stable physical exam is unremarkable. PHYSICIAL EXAM: Vitals are stable no JVD S1-S2 heard normally no significant murmurs lungs are clear abdomen and lower extremity exam is unremarkable. Right groin is clean and dry Central nervous system is normal. IMPRESSION: 1. Acute anterior ST elevation [place] s/p stenting of [place] RCA probably an acute marginal branch was involved. KOENIG to LAD is patent. 2. Benign hypertension. 3. Hypercholesterolemia. 4. Nicotine abuse. 5.. RECOMMENDATIONS: Increase activity add amlodipine moved to telemetry and if he does well can be discharged tomorrow. Counseled regarding the need to quit smoking.. HPI: [This is a 64-year-old gentleman who underwent aortocoronary bypass surgery more than 10 years ago details unavailable. He presented with chest pain and anterior ST elevation yesterday underwent preoperative cardiac cath which revealed that KOENIG to LAD was patent. He also had SVG to OM1 and another SVG to OM 2 both of which were patent. The graft to the RCA was atrophic and [place] RCA was stented. Patient continued to have some mid scapular pain and a CT angiogram revealed no evidence of any aortic pathology or of any pulmonary embolism. He is doing well echo was being performed and appears to revealed normal systolic function. With a questionable inferobasal hypokinesia. PHYSICIAL EXAM: Vitals are stable no JVD S1-S2 heard normally lungs are clear abdomen and lower extremity exam is unremarkable right groin is clean and dry. METROLOGIST is normal. IMPRESSION: 1. Acute anterior ST elevation [place] status post stenting of [place] RCA. KOENIG to LAD is patent. 2. Hypertension. 3. Hypercholesterolemia. 4.. 5.. RECOMMENDATIONS: Continue current medications which include beta-blockers, statins and dual antiplatelet therapy. Will check serial troponins and review formal echo report. Discussed with patient. Objective - Vital Signs Vital signs: Vital Signs Temp 98.9 F 07/29/24 21:00 Pulse 70 07/30/24 07:00 Resp 21 07/30/24 07:00 BP 128/63 07/30/24 07:00 Pulse Ox 98 07/30/24 07:00 FiO2 Intake & Output 07/29/24 07/30/24 07/30/24 18:59 06:59 18:59 Intake Total 1275 540 0 Output Total 1250 1050 0 Balance 25 -510 0 Weight 83.3 kg 80.1 kg Intake: Intake, IV Titration 75 Amount Sodium Chloride 0.9% 1, 75 000 ml In Empty Bag 1 bag @ 75 mls/hr IV .[id number] PAZ Rx#:[id number] Oral 1200 540 0 Output: Urine 1250 1050 0 Other: Voiding Method Urinal Urinal # Voids 0 # Bowel Movements 0 0 0 - Labs CBC & Chem 7: 07/28/24 18:51 07/30/24 03:01 Labs: Abnormal Lab Results - Last 24 Hours (Table) 07/29/24 07/29/24 Range/Units 12:04 17:59 Troponin I 4.870 H* 4.010 H* (0.000-0.034) ng/mL
[2024-07-30] MEDS: LOSARTAN 50 MG TAB PO SCH (08:59)
[2024-07-30] MEDS: amLODIPine 5 MG TAB PO SCH (08:59)
--- NOTE | 2024-07-30 09:03 | CA ---
Transthoracic Echo Report Name: Arley Fox Age: 64 Gender: M : 1960 Exam Date: 07/29/2024 08:16 Exam Location: [facility] Ht (in): 68 Wt (lb): 185 Ordering Physician: Jos Coon MD ([id number]) Attending/Referring Phys: Supervisor Of Operations Isabel Cragi RDCS Procedure CPT: Indications: ACS Cardiac Hx: Technical Quality: Fair Contrast 1: Total Dose (mL): Contrast 2: Total Dose (mL): MEASUREMENTS (Male / Female) Normal Values 2D ECHO LV Diastolic Diameter PLAX 4.8 cm 4.2 - 5.9 / 3.9 - 5.3 cm LV Systolic Diameter PLAX 3.2 cm IVS Diastolic Thickness 1.2 cm 0.6 - 1.0 / 0.6 - 0.9 cm LVPW Diastolic Thickness 1.2 cm 0.6 - 1.0 / 0.6 - 0.9 cm LV Relative Wall Thickness 0.5 RV Internal Dim ED PLAX 3.6 cm LA Systolic Diameter LX 4.4 cm 3.0 - 4.0 / 2.7 - 3.8 cm LV Diastolic Volume MOD BP 117.9 cm??? 67 - 155 / 56 - 104 cm??? LV Systolic Volume MOD BP 53.6 cm??? - 58 / 19 - 49 cm??? LV Ejection Fraction MOD BP 54.6 % >= 55 % LV Cardiac Index MOD BP 2001.7 cm???/min???m??? LV Diastolic Volume MOD 4C 105.9 cm??? LV Systolic Volume MOD 4C 49.3 cm??? LV Ejection Fraction MOD 4C 53.4 % LV Cardiac Index MOD 4C 1761.4 cm???/min???m??? LV Diastolic Length 4C 7.9 cm LV Systolic Length 4C 6.9 cm LV Diastolic Volume MOD 2C 122.6 cm??? LV Systolic Volume MOD 2C 57.7 cm??? LV Ejection Fraction MOD 2C 52.9 % LV Cardiac Index MOD 2C 2017.7 cm???/min???m??? LV Diastolic Length 2C 8.5 cm LV Systolic Length 2C 7.3 cm LA Volume 79.5 cm??? 18 - 58 / 22 - 52 cm??? LA Volume Index 39.3 cm???/m??? 16 - 28 cm???/m??? M-MODE Aortic Root Diameter MM 3.4 cm AV Cusp Separation MM 1.8 cm DOPPLER AV Peak Velocity 149.6 cm/s AV Peak Gradient 9.0 mmHg MV Area PHT 2.8 cm??? Mitral E Point Velocity 109.5 cm/s Mitral A Point Velocity 108.1 cm/s Mitral E to A Ratio 1.0 MV Deceleration Time 273.6 ms FINDINGS Left Ventricle Left ventricular ejection fraction is estimated at 50-55 %. Left ventricular cavity size normal. Mildly increased left ventricular wall thickness. Right Ventricle Mild right ventricular dilatation. Unable to estimate the right ventricular systolic pressure. Right Atrium Mild right atrial dilatation. No right atrial thrombus or mass seen. Left Atrium Mildly increased left atrial diameter. Moderately increased left atrial volume. Mildly increased left atrial area. No left atrial thrombus or mass present. Mitral Valve Structurally normal mitral valve. No mitral stenosis. Mild mitral regurgitation. Aortic Valve Thickened aortic valve without stenosis. Trileaflet aortic valve.aortic valve sclerosis. Tricuspid Valve Structurally normal tricuspid valve. No tricuspid stenosis, regurgitation or prolapse. Pulmonic Valve Pulmonic valve not well visualized. No pulmonic stenosis. No pulmonic regurgitation. Pericardium No pericardial or pleural effusion. Aorta Normal size aortic root and proximal ascending aorta. CONCLUSIONS 1. Left ventricular systolic function borderline normal with no clear segmental wall motion abnormality 2. Mild mitral regurgitation Previewed by: Dr. Moni Martinez MD (Electronically Signed) Final Date: 30 July 2024 09:02
[2024-07-31 08:41] VITALS: TEMP 97.7
[2024-07-31] MEDS: hydrALAZINE HCL 25 MG TAB PO SCH (09:44)
[2024-07-31 11:31] VITALS: BP 150/96; PULSE 71; RESP 16
--- NOTE | 2024-07-31 13:17 | P.PN ---
Subjective Progress Note Date: 07/31/24 HPI: [This is a 64-year-old gentleman who underwent aortocoronary bypass surgery more than 10 years ago details unavailable. He presented with chest pain and anterior ST elevation yesterday underwent preoperative cardiac cath which revealed that KOENIG to LAD was patent. He also had SVG to OM1 and another SVG to OM 2 both of which were patent. The graft to the RCA was atrophic and [place] RCA was stented. Patient continued to have some mid scapular pain and a CT angiogram revealed no evidence of any aortic pathology or of any pulmonary embolism. He is doing well echo was being performed and appears to revealed normal systolic function. With a questionable inferobasal hypokinesia. 07/31 Patient denies having chest pain this morning. Blood pressure remains on the high side for which medications will be adjusted. Blood pressure 154/106, heart rate 105, pulse ox 97% on room air. No repeat blood work today. PHYSICIAL EXAM: Vitals are stable no JVD S1-S2 heard normally lungs are clear abdomen and lower extremity exam is unremarkable right groin is clean and dry. MATERIAL HANDLING EQUIPMENT STEVEDORE is normal. IMPRESSION: 1. Acute anterior ST elevation [place] status post stenting of [place] RCA. KOENIG to LAD is patent. 2. Hypertension. 3. Hypercholesterolemia. RECOMMENDATIONS: Continue current medications which include beta-blockers, statins and dual antiplatelet therapy. Increase Norvasc to 5 mg twice daily and patient will receive an additional 5 mg this morning Add hydralazine 25 mg 3 times daily Prescriptions for new cardiac medications have been sent to his pharmacy Patient is cleared for discharge and will follow-up in the office with Dr. Coon in 1 week Nurse practitioner note has been reviewed, I agree with documented findings and plan of care. Patient was seen and examined. Objective - Vital Signs Vital signs: Vital Signs Temp 97.7 F 07/31/24 08:00 Pulse 105 H 07/31/24 08:00 Resp 18 07/31/24 08:00 BP 154/106 07/31/24 08:00 Pulse Ox 97 07/31/24 08:00 FiO2 Intake & Output 07/30/24 07/31/24 07/31/24 18:59 06:59 18:59 Intake Total 850 240 Output Total 600 Balance 250 240 Weight 80.2 kg Intake: Oral 850 240 Output: Urine 600 Other: Voiding Method Urinal Urinal Toilet # Voids 4 1 # Bowel Movements 0 - Labs CBC & Chem 7: 07/28/24 18:51 07/30/24 03:01
[2024-07-31] MEDS ORDERED: amLODIPine 5 MG TAB PO SCH (21:00)
--- NOTE | 2024-08-02 04:09 | DS ---
DISCHARGE SUMMARY CHIEF COMPLAINT: Acute STEMI. HISTORY OF PRESENT ILLNESS AND PHYSICAL EXAMINATION: Details of this man's history and physical can be found in the initial workup. LABORATORY STUDIES: While he was in the hospital, he had laboratory studies, details of which can be found in the laboratory section of his chart. COURSE IN THE HOSPITAL: After admission, he was taken to the [facility], apparently underwent cardiac cath with stenting of the RCA. Postoperatively, he did well. He had no significant problems with chest pain, shortness of breath, arrhythmias, etc. It was felt that he could be discharged home on the , and he will go home on light activity and a cardiac diet and be seen in several days, but his blood pressure will be monitored closely. FINAL DIAGNOSES: 1. Acute ST-elevation myocardial infarction. 2. ASCVD. 3. Coronary artery disease. 4. Hyperlipidemia. 5. Nicotine abuse. 6. Alcohol abuse. OPERATION: Cardiac cath. CONSULTATION: Cardiology. CONDITION: He is improved. MMCHET / ANTHONYN: [id number] /
--- NOTE | 2024-08-03 06:11 | PN ---
PROGRESS NOTE DATE OF SERVICE: 07/30/2024 CHIEF COMPLAINT: Acute STEMI. HISTORY OF PRESENT ILLNESS: This gentleman is doing well. He has not had any chest pain or shortness of breath. Activity is increasing. Blood pressure is under good control. PHYSICAL EXAMINATION: CHEST: Clear. CARDIAC: Normal. ABDOMEN: Soft, nontender. IMPRESSION: 1. Acute STEMI. 2. Hypertension. 3. Chronic obstructive pulmonary disease. 4. Alcoholism. PLAN: Progress activity and home when cleared by Cardiology. MMODL / IJN: [id number] /
== END 2024-07-31 12:52 | disposition home or self-care (01) | DRG 322 ==
LOC: EC 18:29 → 2SICU 19:01 → 3SCARD 07-30 18:29
PROVIDERS: ADMIT Family Medicine; ATTEND Family Medicine
PROC: B3101ZZ Fluoroscopy of Thoracic Aorta using Low Osmolar Contrast (ICD-10-PCS; principal; 2024-07-28 19:09)
PROC: 4A023N7 Measurement of Cardiac Sampling and Pressure, Left Heart, Percutaneous Approach (ICD-10-PCS; principal; 2024-07-28 19:09)
PROC: B2111ZZ Fluoroscopy of Multiple Coronary Arteries using Low Osmolar Contrast (ICD-10-PCS; principal; 2024-07-28 19:09)
PROC: B2131ZZ Fluoroscopy of Multiple Coronary Artery Bypass Grafts using Low Osmolar Contrast (ICD-10-PCS; principal; 2024-07-28 19:09)
PROC: B41D1ZZ Fluoroscopy of Aorta and Bilateral Lower Extremity Arteries using Low Osmolar Contrast (ICD-10-PCS; principal; 2024-07-28 19:09)
PROC: B240ZZ3 Ultrasonography of Single Coronary Artery, Intravascular (ICD-10-PCS; principal; 2024-07-28 19:09)
PROC: 027034Z Dilation of Coronary Artery, One Artery with Drug-eluting Intraluminal Device, Percutaneous Approach (ICD-10-PCS; principal; 2024-07-28 19:09)
DX: I21.09 ST elevation (STEMI) myocardial infarction involving other coronary artery of anterior wall (principal); E78.00 Pure hypercholesterolemia, unspecified; F10.20 Alcohol dependence, uncomplicated; I10 Essential (primary) hypertension; J44.9 Chronic obstructive pulmonary disease, unspecified; I25.10 Atherosclerotic heart disease of native coronary artery without angina pectoris; E87.6 Hypokalemia; K21.9 Gastro-esophageal reflux disease without esophagitis; M54.2 Cervicalgia; F17.200 Nicotine dependence, unspecified, uncomplicated; I25.2 Old myocardial infarction; Z79.899 Other long term (current) drug therapy; Z95.1 Presence of aortocoronary bypass graft; Z95.5 Presence of coronary angioplasty implant and graft; Z88.8 Allergy status to other drugs, medicaments and biological substances
CPT/HCPCS: 71045; 71275; 80053; 80320; 82565; 83735; 84132; 84484; 85025; 85610; 85730; 92978; 93005; 93306; 93459; 93567; 94760; 96374; 96375; 99291

== ENCOUNTER 2024-08-01 21:21 | Emergency (ER) | payer BC ==
[2024-08-01 21:27] VITALS: RESP 18; TEMP 97.7
--- NOTE | 2024-08-01 21:47 | ED ---
Male Urogenital HPI - General Chief complaint: Urogenital Stated complaint: Hematuria Time Seen by Provider: 08/01/24 21:31 Source: patient Mode of arrival: ambulatory Limitations: no limitations - History of Present Illness Initial comments: This patient is a 64-year-old man who presents to have evaluation after he noticed that there was blood in his ejaculate tonight after sexual intercourse. Patient notes that he had recent STEMI with having stent placed. He started taking his prescribed Brilinta today. The patient had sexual intercourse tonig ht and when he removed condom saw there was blood there. He did go and urinate and there was a small clot that was passed. Patient denies other symptoms. He has not had fevers. No chest pain, cough, dyspnea, diaphoresis. No abdominal, scrotal or testicular pain. There had been no change in urination. MD Complaint: other Onset/Timin -: hour(s) Severity scale (1-10): 0 Improves with: none Worsens with: none new medication Reports: denies other symptoms - Related Data Home Medications Medication Instructions Recorded Confirmed Omeprazole 20 mg PO BID 03/22/14 07/28/24 Evolocumab [Repatha Sureclick] 140 mg SQ Q14D 07/28/24 07/28/24 Losartan Potassium 100 mg PO DAILY 07/28/24 07/28/24 Previous Rx's Medication Instructions Recorded Aspirin 81 mg PO DAILY tab 07/31/24 Metoprolol Tartrate [Lopressor] 25 mg PO BID #180 tab 07/31/24 Nitroglycerin Sl Tabs [Nitrostat] 0.4 mg SUBLINGUAL Q5M PRN #25 tab 07/31/24 Ticagrelor [Brilinta] 90 mg PO BID #180 tab 07/31/24 amLODIPine [Norvasc] 5 mg PO BID #180 tab 07/31/24 hydrALAZINE HCL [Apresoline] 25 mg PO TID #270 tab 07/31/24 Allergies Allergy/AdvReac Type Severity Reaction Status Date / Time atorvastatin [From Lipitor] Allergy Nausea & Verified 08/01/24 21:27 Vomiting Review of Systems ROS Statement: Those systems with pertinent positive or pertinent negative responses have been documented in the HPI. ROS Other: All systems not noted in ROS Statement are negative. Constitutional: Denies: fever, chills Respiratory: Denies: cough, dyspnea Cardiovascular: Denies: chest pain, palpitations, syncope Gastrointestinal: Denies: abdominal pain, vomiting, diarrhea Genitourinary: Reports: other. Denies: dysuria, frequency, hematuria, testicular pain, testicular mass Musculoskeletal: Denies: back pain Skin: Denies: rash Neurological: Denies: headache, weakness Hematological/Lymphatic: Denies: easy bleeding Past Medical History Past Medical History: Coronary Artery Disease (CAD), Chest Pain / Angina, GERD/Reflux, GI Bleed, Hyperlipidemia, Hypertension, Myocardial Infarction (ID) Additional Past Medical History / Comment(s): intermittent problems with swallowing, rectal bleeding, Last Myocardial Infarction Date:: 2009 History of Any Multi-Drug Resistant Organisms: None Reported Past Surgical History: Appendectomy, Coronary Bypass/CABG, Heart Catheterization With Stent Additional Past Surgical History / Comment(s): 5 vessel CABG February 2010, EGD/colonoscopy Past Anesthesia/Blood Transfusion Reactions: No Reported Reaction Date of Last Stent Placement:: 2009 Past Psychological History: No Psychological Hx Reported Smoking Status: Former smoker Past Alcohol Use History: Daily Past Drug Use History: Marijuana - Past Family History Father Family Medical History: Cancer, Hyperlipidemia Additional Family Medical History / Comment(s): lung Mother Family Medical History: Cancer Additional Family Medical History / Comment(s): Cancer hx of colon CA. General Exam Limitations: no limitations General appearance: alert, in no apparent distress Head exam: Present: atraumatic, normocephalic Eye exam: Present: normal appearance. Absent: scleral icterus, conjunctival injection ENT exam: Present: normal oropharynx Neck exam: Present: normal inspection Respiratory exam: Present: normal lung sounds bilaterally. Absent: respiratory distress, wheezes, rales, rhonchi, stridor Cardiovascular Exam: Present: regular rate, normal rhythm, normal heart sounds. Absent: systolic murmur, diastolic murmur, rubs, gallop GI/Abdominal exam: Present: soft. Absent: distended, tenderness, guarding, rebound, rigid, mass Rectal exam: Present: normal inspection, normal rectal tone, normal prostate. Absent: mass, tenderness, prostate tenderness, prostate enlargement Extremities exam: Present: normal inspection, normal capillary refill. Absent: pedal edema, calf tenderness Back exam: Present: normal inspection. Absent: CVA tenderness (R), CVA tenderness (L) Neurological exam: Present: alert Skin exam: Present: warm, dry, intact, normal color. Absent: rash Course Vital Signs 08/01/24 08/01/24 08/01/24 21:22 22:10 23:01 Temperature 97.7 F Pulse Rate 81 81 70 Respiratory 18 18 Rate Blood Pressure 160/100 150/108 151/95 O2 Sat by Pulse 97 98 98 Oximetry Medical Decision Making - Medical Decision Making Was pt. sent in by a medical professional or institution (, [facility], COLLISION CENTER MANAGER, urgent care, hospital, or [facility]...) When possible be specific @ -[No] Did you speak to anyone other than the patient for history (EMS, parent, family, police, friend...)? What history was obtained from this source @ -[No] Did you review nursing and triage notes (agree or disagree)? Why? @ -[I reviewed and agree with nursing and triage notes] Were old charts reviewed (outside hosp., previous admission, EMS record, old EKG, old radiological studies, urgent care reports/EKG's, [facility] records)? Report findings @ -[No old charts were reviewed] Differential Diagnosis (chest pain, altered mental status, abdominal pain women, abdominal pain men, vaginal bleeding, weakness, fever, dyspnea, syncope, headache, dizziness, GI bleed, back pain, seizure, CVA, palpatations, mental health, musculoskeletal)? @ -[not applicable] EKG interpreted by me (3pts min.). @ -[As above] X-rays interpreted by me (1pt min.). @ -[None done] CT interpreted by me (1pt min.). @ -[None done] U/S interpreted by me (1pt. min.). @ -[None done] What testing was considered but not performed or refused? (CT, X-rays, U/S, labs)? Why? @ -[None] What meds were considered but not given or refused? Why? @ -[None] Did you discuss the management of the patient with other professionals (professionals i.e. DEBRA Sutton, COLLISION CENTER MANAGER, lab, RT, psych nurse, health social work professor, diesel dragline operator, teacher, chief commercial officer, residential case manager)? Give summary @ -[No] Was smoking cessation discussed for >3mins.? @ -[No] Was critical care preformed (if so, how long)? @ -[No] Were there social determinants of health that impacted care today? How? (Homelessness, low income, unemployed, alcoholism, drug addiction, transportation, low edu. Level, literacy, decrease access to med. care, correction, rehab)? @ -[No] Was there de-escalation of care discussed even if they declined (Discuss DNR or withdrawal of care, Hospice)? DNR status @ -[No] What co-morbidities impacted this encounter? (DM, HTN, Smoking, COPD, CAD, Cancer, CVA, ARF, Chemo, Hep., AIDS, mental health diagnosis, sleep apnea, morbid obesity)? @ -[None] Was patient admitted / discharged? Hospital course, mention meds given and route, prescriptions, significant lab abnormalities, going to OR and other pertinent info. @ -[Patient is 64-year-old man here to have evaluation after having some blood with his ejaculate. Patient exam and workup are benign. Discussed with patient need to follow with urology as this is occasionally evidence of malignancy/cancer. Discussed appropriate follow-up and return parameters Undiagnosed new problem with uncertain prognosis? @ -[No] Drug Therapy requiring intensive monitoring for toxicity (Heparin, Nitro, Insulin, Cardizem)? @ -[No] Were any procedures done? @ -[No] Diagnosis/symptom? @ -[Acute hematospermia Acute hematuria Acute, or Chronic, or Acute on Chronic? @ -[Acute Uncomplicated (without systemic symptoms) or Complicated (systemic symptoms)? @ -[Uncomplicated Side effects of treatment? @ -[No] Exacerbation, Progression, or Severe Exacerbation? @ -[No] Poses a threat to life or bodily function? How? (Chest pain, USA, ID, pneumonia, PE, COPD, DKA, ARF, appy, cholecystitis, CVA, Diverticulitis, Homicidal, Suicidal, threat to staff... and all critical care pts) @ -[No] All treatments are based on ideal body weight as in ED triage - Lab Data Result diagrams: 08/01/24 21:54 08/01/24 21:54 Lab Results 08/01/24 08/01/24 08/01/24 Range/Units 21:50 21:50 21:54 WBC 10.5 (3.8-10.6) k/uL RBC 5.15 (4.30-5.90) m/uL Hgb 16.3 (13.0-17.5) gm/dL Hct 48.1 (39.0-53.0) % MCV 93.5 (80.0-100.0) fL MCH 31.6 (25.0-35.0) pg MCHC 33.8 (31.0-37.0) g/dL RDW 13.3 (11.5-15.5) % Plt Count 250 (150-450) k/uL MPV 7.2 Neutrophils % 56 % Lymphocytes % 31 % Monocytes % 7 % Eosinophils % 3 % Basophils % 1 % Neutrophils # 5.9 (1.3-7.7) k/uL Lymphocytes # 3.2 (1.0-4.8) k/uL Monocytes # 0.7 (0-1.0) k/uL Eosinophils # 0.3 (0-0.7) k/uL Basophils # 0.1 (0-0.2) k/uL PT (10.0-12.5) sec INR (<1.2) APTT (22.0-30.0) sec Sodium (137-145) mmol/L Potassium (3.5-5.1) mmol/L Chloride (98-107) mmol/L Carbon Dioxide (22-30) mmol/L Anion Gap mmol/L BUN (9-20) mg/dL Creatinine (0.66-1.25) mg/dL Est GFR (CKD-EPI)AfAm (>60 ml/min/1.73 sqM) Est GFR (CKD-EPI)NonAf (>60 ml/min/1.73 sqM) Glucose (74-99) mg/dL Calcium (8.4-10.2) mg/dL Urine Color Yellow Urine Appearance Clear (Clear) Urine pH 5.0 (5.0-8.0) Ur Specific [place] 1.022 (1.001-1.035) Urine Protein Negative (Negative) Urine Glucose (UA) Negative (Negative) Urine Ketones Negative (Negative) Urine Blood Small H (Negative) Urine Nitrite Negative (Negative) Urine Bilirubin Negative (Negative) Urine Urobilinogen <2.0 (<2.0) mg/dL Ur Leukocyte Esterase Negative (Negative) Urine RBC 29 H (0-5) /hpf Urine WBC <1 (0-5) /hpf Ur Squamous Epith Cells <1 (0-4) /hpf Urine Mucus Rare H (None) /hpf Chlamydia DNA (PCR) Negative (Negative) N.gonorrhoeae DNA Probe Negative (Negative) 08/01/24 08/01/24 Range/Units 21:54 22:19 WBC (3.8-10.6) k/uL RBC (4.30-5.90) m/uL Hgb (13.0-17.5) gm/dL Hct (39.0-53.0) % MCV (80.0-100.0) fL MCH (25.0-35.0) pg MCHC (31.0-37.0) g/dL RDW (11.5-15.5) % Plt Count (150-450) k/uL MPV Neutrophils % % Lymphocytes % % Monocytes % % Eosinophils % % Basophils % % Neutrophils # (1.3-7.7) k/uL Lymphocytes # (1.0-4.8) k/uL Monocytes # (0-1.0) k/uL Eosinophils # (0-0.7) k/uL Basophils # (0-0.2) k/uL PT 10.0 (10.0-12.5) sec INR 0.9 (<1.2) APTT 24.4 (22.0-30.0) sec Sodium 136 L (137-145) mmol/L Potassium 4.2 (3.5-5.1) mmol/L Chloride 105 (98-107) mmol/L Carbon Dioxide 22 (22-30) mmol/L Anion Gap 9 mmol/L BUN 21 H (9-20) mg/dL Creatinine 0.99 (0.66-1.25) mg/dL Est GFR (CKD-EPI)AfAm >90 (>60 ml/min/1.73 sqM) Est GFR (CKD-EPI)NonAf 80 (>60 ml/min/1.73 sqM) Glucose 135 H (74-99) mg/dL Calcium 9.6 (8.4-10.2) mg/dL Urine Color Urine Appearance (Clear) Urine pH (5.0-8.0) Ur Specific [place] (1.001-1.035) Urine Protein (Negative) Urine Glucose (UA) (Negative) Urine Ketones (Negative) Urine Blood (Negative) Urine Nitrite (Negative) Urine Bilirubin (Negative) Urine Urobilinogen (<2.0) mg/dL Ur Leukocyte Esterase (Negative) Urine RBC (0-5) /hpf Urine WBC (0-5) /hpf Ur Squamous Epith Cells (0-4) /hpf Urine Mucus (None) /hpf Chlamydia DNA (PCR) (Negative) N.gonorrhoeae DNA Probe (Negative) Disposition Clinical Impression: Hematospermia Disposition: HOME SELF-CARE Condition: Good Additional Instructions: As we discussed, follow-up with your physician to have PSA levels checked, and/or urology for further evaluation. Return if any of the symptoms that we discussed develop. Is patient prescribed a controlled substance at d/c from ED?: No Referrals: Ramsey Wells MD [Primary Care Provider] - 1-2 days Kian Crowley MD [STAFF PHYSICIAN] - 1-2 days
[2024-08-01 22:00] LABS: Basophils # (A) 0.1 k/uL (0-0.2); Basophils % (A) 1 %; Eosinophils # (A) 0.3 k/uL (0-0.7); Eosinophils % (A) 3 %; HCT 48.1 % (39.0-53.0); HGB 16.3 gm/dL (13.0-17.5); Lymphocytes # (A) 3.2 k/uL (1.0-4.8); Lymphocytes % (A) 31 %; MCH 31.6 pg (25.0-35.0); MCHC 33.8 g/dL (31.0-37.0); MCV 93.5 fL (80.0-100.0); Mean Platelet Volume 7.2; Monocytes # (A) 0.7 k/uL (0-1.0); Monocytes % (A) 7 %; Neutrophils # (A) 5.9 k/uL (1.3-7.7); Neutrophils % (A) 56 %; Platelet Count 250 k/uL (150-450); RBC 5.15 m/uL (4.30-5.90); RDW 13.3 % (11.5-15.5); WBC 10.5 k/uL (3.8-10.6)
[2024-08-01 22:27] LABS: African American GFR (CKD) >90 (>60 ml/min/1.73 sqM); Anion Gap 9 mmol/L; Blood Urea Nitrogen 21 mg/dL (9-20); Calcium 9.6 mg/dL (8.4-10.2); Carbon Dioxide 22 mmol/L (22-30); Chloride 105 mmol/L (98-107); Glucose 135 mg/dL (74-99); Non-African American GFR(CKD) 80 (>60 ml/min/1.73 sqM); Potassium 4.2 mmol/L (3.5-5.1); Sodium 136 mmol/L (137-145)
[2024-08-01 22:30] LABS: Appearance,Urine Clear (Clear); Bilirubin,Urine Negative (Negative); Blood,Urine Small (Negative); Color,Urine Yellow; Glucose,Urine (UA) Negative (Negative); Ketones,Urine Negative (Negative); Leukocyte Esterase,Urine Negative (Negative); Mucus,Urine Rare /hpf; Nitrite,Urine Negative (Negative); Protein,Urine Negative (Negative); RBC,Urine 29 /hpf (0-5); Specific Gravity,Urine 1.022 (1.001-1.035); Squamous Epithelial Cell,Urine <1 /hpf (0-4); Urobilinogen,Urine <2.0 mg/dL (<2.0); WBC,Urine <1 /hpf (0-5)
[2024-08-01 22:36] LABS: INR 0.9 (<1.2); Partial Thromboplastin Time 24.4 sec (22.0-30.0)
[2024-08-01 23:02] VITALS: BP 151/95; PULSE 70
[2024-08-04 12:19] LABS: C. trachomatis,PCR Negative (Negative)
[2024-08-04 12:26] LABS: N. gonorrhoeae,PCR Negative (Negative)
== END 2024-08-01 23:03 | disposition home or self-care (01) ==
LOC: EC 21:21
DX: R36.1 Hematospermia (principal); Z87.891 Personal history of nicotine dependence; Z95.1 Presence of aortocoronary bypass graft
CPT/HCPCS: 36415; 80048; 81001; 85025; 85610; 85730; 87491; 87591; 99283

== ENCOUNTER 2025-01-29 09:05 | Day surgery (SDC) | payer BC ==
[2025-01-28 11:42] VITALS: BMI 30.1
[2025-01-29 09:39] VITALS: TEMP 97.3
[2025-01-29] MEDS: LACTATED RINGERS 1,000 ML IV SCH (09:45)
[2025-01-29] MEDS: IV FLUID CONTINUATION 1,000 ML IV ONE (09:46)
[2025-01-29] MEDS: hydrALAZINE HCL 20 MG/ML 1 ML VIAL IVP STA (09:58)
[2025-01-29] MEDS ORDERED: PROPOFOL 10 MG/ML 20 ML VIAL IV ONE (10:27)
--- NOTE | 2025-01-29 10:45 | P.PCN ---
Date of Procedure: 01/29/25 Procedure(s) Performed: BRIEF HISTORY: Patient is a 64-year-old pleasant white male scheduled for an elective colonoscopy as a part of screening for colon cancer/positive Cologuard and family history of colon cancer. His mother was diagnosed with colon cancer at age 65 PROCEDURE PERFORMED: Colonoscopy with snare polypectomy. PREOPERATIVE DIAGNOSIS: Screening for colon cancer/positive Cologuard and family history of colon cancer. IV sedation per Anesthesia. PROCEDURE: After informed consent was obtained, the patient, was brought into the endoscopy unit. IV sedation was administered by Anesthesia under continuous monitoring. Digital rectal examination was normal. Initially the Olympus CF-160 flexible video colonoscope was then inserted in the rectum, gradually advanced into the cecum without any difficulty. Careful examination was performed as the scope was gradually being withdrawn. Ileocecal valve and the appendiceal orifice were visualized and appeared normal. Prep was excellent. Mucosa of the cecum, had 4 polyps measuring between 3 to 4 mm in size removed by cold biopsy. In the ascending colon there were 3 polyps measuring between 5 mm, 6 mm and 7 mm in size removed by cold snare polypectomy. In the transverse colon there were 2 polyps measuring 6 mm and 1 polyp 7 mm in size removed by cold snare polypectomy. Rest of the ascending colon, transverse colon, descending colon, appeared normal. Scattered sigmoid diverticulosis seen. There was a 4 mm polyp in the sigmoid colon that was removed by cold snare polypectomy. Sigmoid colon, and rectum appeared normal. Retroflexion was performed in the rectum and no lesions were seen. The patient tolerated the procedure well. IMPRESSION: 4 polyps in the cecum measuring between 3 to 4 mm in size all of which were removed by cold biopsy 5 mm, 6 mm and 7 mm ascending colon polyp status post cold snare polypectomy 6 mm x 2 and 7 mm transverse colon polyp status post cold snare polypectomy 4 mm sigmoid colon polyp status post cold snare polypectomy Scattered sigmoid diverticulosis RECOMMENDATIONS: Findings of this examination were discussed with the patient as well as his family.. He was advised to follow-up with the biopsy results. If the biopsy reveals adenoma he can have a repeat colonoscopy in 3 years.
[2025-01-29 10:54] VITALS: RESP 16
[2025-01-29 11:17] VITALS: BP 158/88; PULSE 54
== END 2025-01-29 11:20 ==
LOC: ORWHC2ENDO 09:05
PROVIDERS: ATTEND Internal Medicine Gastroenterology
DX: D12.0 Benign neoplasm of cecum (principal); D12.2 Benign neoplasm of ascending colon; D12.3 Benign neoplasm of transverse colon; K57.30 Diverticulosis of large intestine without perforation or abscess without bleeding; I25.10 Atherosclerotic heart disease of native coronary artery without angina pectoris; I10 Essential (primary) hypertension; E78.5 Hyperlipidemia, unspecified; K21.9 Gastro-esophageal reflux disease without esophagitis; Z79.82 Long term (current) use of aspirin; Z79.899 Other long term (current) drug therapy; Z79.02 Long term (current) use of antithrombotics/antiplatelets; Z80.0 Family history of malignant neoplasm of digestive organs; Z86.0100 Personal history of colon polyps, unspecified; Z88.8 Allergy status to other drugs, medicaments and biological substances
CPT/HCPCS: 88305; 45380; 45385; J0360; J2704